=== PATIENT | male | born 1945 | race Caucasian/White ===

== ENCOUNTER → 2018-07-24 | Outpatient (CLI) | payer MEDICARE ==
[2018-07-24 13:44] LABS: ALBUMIN/GLOBULIN RATIO 1.29 (1.00-1.93); ALKALINE PHOSPHATASE 56 U/L (45-117); ALT/SGPT 34 U/L (12-78); ANION GAP 6 MEQ/L (8-16); AST/SGOT 18 U/L (7-37); BILIRUBIN,TOTAL 1.3 MG/DL (0.2-1.0); BLOOD UREA NITROGEN 32 MG/DL (7-18); CALCIUM LEVEL 9.5 MG/DL (8.8-10.2); CARBON DIOXIDE LEVEL 30 MEQ/L (21-32); CHLORIDE LEVEL 102 MEQ/L (98-107); CHOLESTEROL LEVEL 156 MG/DL (<200); CHOLESTEROL RISK RATIO 4.457 (<5); GLOMERULAR FILTRATION RATE > 60.0 (>42); GLUCOSE, FASTING 124 MG/DL (70-100); HDL CHOLESTEROL 35 MG/DL (>40); LDL CHOLESTEROL 72 MG/DL (<100); NON-HDL-C 121 MG/DL; POTASSIUM SERUM 4.6 MEQ/L (3.5-5.1); SODIUM LEVEL 138 MEQ/L (136-145); TOTAL PROTEIN 7.1 GM/DL (6.4-8.2); TRIGLYCERIDES LEVEL 244 MG/DL (<150); URIC ACID 5.7 MG/DL (3.5-7.2)
[2018-07-24 13:55] LABS: ESTIMATED AVERAGE GLUCOSE 140 MG/DL (60-110); HEMOGLOBIN A1c 6.5 %
[2018-07-24 14:08] LABS: MALB URINE SIEMENS 31.9 MG/L; MAU/CREAT RATIO 23.1 MCG/MG (0.0-30.0)
== END ==
LOC: M ADAMS 10:38
DX: E11.9 Type 2 diabetes mellitus without complications (principal); I10 Essential (primary) hypertension; E78.2 Mixed hyperlipidemia; M10.9 Gout, unspecified; E83.42 Hypomagnesemia
CPT/HCPCS: 83735

== ENCOUNTER → 2018-11-19 | Outpatient (REF) | payer MEDICARE ==
[~2018-11-19] MED LIST: ASPI81TA85 PO; CARV12.5 PO; CARV25TA PO; DIGO0.25 PO; FURO40TA2 PO; MAGN200T PO; METF10004 PO; MULTCAP PO; PRAD150C6 PO; RAMI1CAP24 PO; SIMV10TA2 PO; SPIR-10 PO; VITA500T PO; ZYLO300T6 PO
[2018-11-19 14:01] LABS: BLOOD UREA NITROGEN 29 MG/DL (7-18); CALCIUM LEVEL 9.5 MG/DL (8.8-10.2); CARBON DIOXIDE LEVEL 28 MEQ/L (21-32); CHLORIDE LEVEL 103 MEQ/L (98-107); CREATININE FOR GFR 1.18 MG/DL (0.70-1.30); GLOMERULAR FILTRATION RATE > 60.0 (>42); GLUCOSE, FASTING 124 MG/DL (70-100); MAGNESIUM LEVEL 1.8 MG/DL (1.8-2.4); POTASSIUM SERUM 4.5 MEQ/L (3.5-5.1); SODIUM LEVEL 136 MEQ/L (136-145)
== END ==
LOC: M LABDRWAD 12:23
PROVIDERS: ATTEND Physician Assistant
DX: I50.42 Chronic combined systolic (congestive) and diastolic (congestive) heart failure (principal)

== ENCOUNTER → 2019-02-20 | Outpatient (REF) | payer MEDICARE ==
[2019-02-20 12:54] LABS: BLOOD UREA NITROGEN 31 MG/DL (7-18); CALCIUM LEVEL 9.5 MG/DL (8.8-10.2); CARBON DIOXIDE LEVEL 29 MEQ/L (21-32); CHLORIDE LEVEL 102 MEQ/L (98-107); CREATININE FOR GFR 1.25 MG/DL (0.70-1.30); GLOMERULAR FILTRATION RATE > 60.0 (>42); GLUCOSE, FASTING 173 MG/DL (70-100); MAGNESIUM LEVEL 1.9 MG/DL (1.8-2.4); POTASSIUM SERUM 4.5 MEQ/L (3.5-5.1); SODIUM LEVEL 139 MEQ/L (136-145)
== END ==
LOC: M LABDRWAD 12:09
PROVIDERS: ATTEND Physician Assistant
DX: I50.42 Chronic combined systolic (congestive) and diastolic (congestive) heart failure (principal)

== ENCOUNTER → 2019-05-29 | Outpatient (REF) | payer MEDICARE ==
[2019-05-29 19:49] LABS: CALCIUM LEVEL 10.3 MG/DL (8.8-10.2); CREATININE FOR GFR 1.45 MG/DL (0.70-1.30); GLOMERULAR FILTRATION RATE 50.6 (>42); MAGNESIUM LEVEL 1.9 MG/DL (1.8-2.4); POTASSIUM SERUM 4.8 MEQ/L (3.5-5.1)
== END ==
LOC: M LABDRAW1 19:07
PROVIDERS: ATTEND Physician Assistant
DX: I50.42 Chronic combined systolic (congestive) and diastolic (congestive) heart failure (principal)

== ENCOUNTER 2019-07-07 10:40 | Emergency (ER) | payer MEDICARE ==
[~2019-07-07] VITALS: Ht 180.3 cm; Wt 110.0 kg
[2019-07-07] MEDS ORDERED: ENTR1TAB (12:15)
[2019-07-07] MEDS ORDERED: BISO5TAB9 (12:15)
[2019-07-07] MEDS ORDERED: CYCLOBENZAPRINE 5MG TABLET PO ONE (13:00)
[2019-07-07] MEDS ORDERED: LIDOCAINE 5% (LIDODERM) PATCH TD ONE (13:00)
[2019-07-07 13:10] LABS: BASO # 0.1 10^3/uL (0.0-0.2); BASO % 0.7 % (0.0-1.0); EOS # 0.4 10^3/uL (0.0-0.5); EOS % 5.2 % (0.0-3.0); HEMATOCRIT 42.4 % (42.0-52.0); HEMOGLOBIN 13.8 g/dl (13.5-17.5); LYMPH # 2.1 10^3/uL (1.5-5.0); LYMPH % 24.6 % (24.0-44.0); MEAN CORPUSCULAR HEMOGLOBIN 33.3 pg (27.0-33.0); MEAN CORPUSCULAR HGB CONC 32.5 g/dl (32.0-36.5); MEAN CORPUSCULAR VOLUME 102.4 fl (80.0-96.0); MONO # 0.7 10^3/uL (0.0-0.8); MONO % 7.8 % (0.0-5.0); NEUTROPHILS # 5.2 10^3/uL (1.5-8.5); NEUTROPHILS % 61.3 % (36.0-66.0); PLATELET COUNT, AUTOMATED 231 10^3/uL (150-450); RED BLOOD COUNT 4.14 10^6/uL (4.30-6.10); WHITE BLOOD COUNT 8.4 10^3/uL (4.0-10.0)
[2019-07-07 13:32] LABS: CALCIUM LEVEL 10.6 MG/DL (8.8-10.2); CREATININE FOR GFR 1.32 MG/DL (0.70-1.30); GLOMERULAR FILTRATION RATE 56.4 (>42); POTASSIUM SERUM 4.8 MEQ/L (3.5-5.1)
--- NOTE | 2019-07-07 13:59 | REP ---
REASON: Low back pain. PRIORS: None. Syndesmophyte formation is seen on the right at the L2-3 level with other partial syndesmophytes at all other levels. Vertebral body height and alignment is within normal limits. There is disc space narrowing at every level. There is degenerative facet joint change seen bilaterally at every level. The pedicles are intact bilaterally. There is no evidence of an acute fracture. IMPRESSION: Rather marked appearing chronic changes. Electronically Signed by Paco Caceres DO 07/07/2019 02:17 P
[2019-07-07] MEDS ORDERED: CYCL5TAB PO (16:37)
[2019-07-07] MEDS ORDERED: LIDO5DIS41 TOP (16:37)
[2019-07-07] MEDS ORDERED: ACETAMINOPHEN TAB 650MG DOSE (2X325MG) PO ONE (16:45)
[2019-07-07 17:05] VITALS: BP 110/62
[2019-07-07] MEDS ORDERED: **NOTE PATIENT COMMENT** MISC XX SCH (21:00)
--- NOTE | 2019-07-08 07:35 | REP ---
REASON: Right sided pain. COMPARISON: None. Limited evaluation of the solid intra-abdominal organs and gallbladder show no gross abnormalities. Limited evaluation of the pancreas and adrenal glands show no gross abnormalities. There are bilateral renovascular calcifications. There is no hydronephrosis or hydroureter. Limited evaluation of the abdominal aorta and paraaortic regions show no gross abnormalities. Limited evaluation of the bowel loops and their mesenteries show no gross abnormalities. There is no free fluid or free air in the abdomen. There was no evidence of an intra-abdominal mass or adenopathy. CT PELVIS: The bowel loops and their mesenteries are within normal limits. There is no free fluid or free air. There is no mass or adenopathy. Bone window technique throughout the exam shows chronic spinal, hip, and sacroiliac joint degenerative changes. The lung bases are within normal limits. There is respiratory motion artifact obscuring the detail. There are no pleural or pericardial effusions. IMPRESSION: There is no evidence of acute intra-abdominal or intrapelvic disease on this limited exam. Findings as described above. Electronically Signed by Paco Caceres DO 07/08/2019 12:07 P
--- NOTE | 2019-07-08 07:41 | REP ---
REASON FOR EXAM: Right sided pain. There are no priors for comparison. CT cannot rule out an acute disc extrusion. Vertebral body height and alignment is within normal limits. There is disc space narrowing at every level particularly posteriorly. There is universal disc space narrowing at L4-5 with endplate sclerosis likely Modic type 3 endplate changes. The facet joints are seen with hypertrophic degenerative change which is mild to moderate at every level bilaterally. There is no bony cause of anabela central canal stenosis. There is no evidence of an acute fracture. Chronic changes seen involving the imaged portion of the sacroiliac joints. Syndesmophyte formation is seen on the right at L2-3 with near complete syndesmophyte formation seen on the left at that level. There is anterior lipping at every level. IMPRESSION: Chronic changes as described above. CT cannot rule out a disc extrusion. MRI would be necessary to make that diagnosis. Electronically Signed by Paco Caceres DO 07/08/2019 12:07 P
--- NOTE | 2019-07-09 15:36 | ED PDOC ---
Post-Departure Follow-Up ish ramirez faxed formal report of ctls spine for fu Janie Loya MD Jul 09, 2019 15:36
== END 2019-07-07 17:06 | disposition home or self-care (01) ==
LOC: M ED 10:40
DX: S30.0XXA Contusion of lower back and pelvis, initial encounter (principal); S39.012A Strain of muscle, fascia and tendon of lower back, initial encounter; X58.XXXA Exposure to other specified factors, initial encounter; Y92.89 Other specified places as the place of occurrence of the external cause; M43.07 Spondylolysis, lumbosacral region; N28.9 Disorder of kidney and ureter, unspecified; E11.9 Type 2 diabetes mellitus without complications; I11.0 Hypertensive heart disease with heart failure; I50.9 Heart failure, unspecified; I48.91 Unspecified atrial fibrillation; E78.5 Hyperlipidemia, unspecified; Z79.899 Other long term (current) drug therapy; Z79.84 Long term (current) use of oral hypoglycemic drugs; Z79.82 Long term (current) use of aspirin; Z88.8 Allergy status to other drugs, medicaments and biological substances

== ENCOUNTER → 2019-07-15 | Outpatient (REF) | payer MEDICARE ==
[~2019-07-15] MED LIST changes: +BISO5TAB9; +CYCL5TAB PO; +ENTR1TAB; +LIDO5DIS41 TOP; -SIMV10TA2 PO; +SIMV10TA21 PO
[2019-07-15 13:41] LABS: ALBUMIN 4.3 GM/DL (3.2-5.2); BILIRUBIN,TOTAL 0.9 MG/DL (0.2-1.0); CALCIUM LEVEL 9.6 MG/DL (8.8-10.2); CHOLESTEROL RISK RATIO 3.785 (<5); CREATININE FOR GFR 1.3 MG/DL (0.70-1.30); GLOMERULAR FILTRATION RATE 57.4 (>42); MAGNESIUM LEVEL 1.7 MG/DL (1.8-2.4); POTASSIUM SERUM 4.8 MEQ/L (3.5-5.1); TOTAL PROTEIN 7.6 GM/DL (6.4-8.2); URIC ACID 4.8 MG/DL (3.5-7.2)
[2019-07-15 13:43] LABS: HEMOGLOBIN A1c 6.5 %
[2019-07-15 13:54] LABS: CREATININE, URINE 36.9 MG/DL; MALB URINE SIEMENS 86.6 MG/L; MAU/CREAT RATIO 234.6 MCG/MG (0.0-30.0)
== END ==
LOC: M LABDRWAD 12:48
PROVIDERS: ATTEND Physician Assistant
DX: E11.69 Type 2 diabetes mellitus with other specified complication (principal); E78.2 Mixed hyperlipidemia; E83.42 Hypomagnesemia; M10.9 Gout, unspecified

== ENCOUNTER → 2019-09-05 | Outpatient (REF) | payer MEDICARE ==
[~2019-09-05] MED LIST changes: +BISO5TAB14; -BISO5TAB9; -DIGO0.25 PO; +DIGO0.253 PO
[2019-09-05 13:40] LABS: CALCIUM LEVEL 9.5 MG/DL (8.8-10.2); CREATININE FOR GFR 1.29 MG/DL (0.70-1.30); POTASSIUM SERUM 4.7 MEQ/L (3.5-5.1)
== END ==
LOC: M LABDRWAD 12:33
PROVIDERS: ATTEND Physician Assistant
DX: I50.42 Chronic combined systolic (congestive) and diastolic (congestive) heart failure (principal)

== ENCOUNTER → 2019-12-10 | Outpatient (REF) | payer MEDICARE ==
[~2019-12-10] MED LIST changes: +VITA-243 PO; -VITA500T PO
[2019-12-10 13:21] LABS: BLOOD UREA NITROGEN 29 MG/DL (7-18); CALCIUM LEVEL 10.1 MG/DL (8.8-10.2); CARBON DIOXIDE LEVEL 25 MEQ/L (21-32); CHLORIDE LEVEL 105 MEQ/L (98-107); CREATININE FOR GFR 1.22 MG/DL (0.70-1.30); GLOMERULAR FILTRATION RATE > 60.0 (>42); GLUCOSE, FASTING 167 MG/DL (70-100); POTASSIUM SERUM 4.6 MEQ/L (3.5-5.1); SODIUM LEVEL 138 MEQ/L (136-145)
== END ==
LOC: M LABDRWAD 12:39
PROVIDERS: ATTEND Physician Assistant
DX: I50.42 Chronic combined systolic (congestive) and diastolic (congestive) heart failure (principal)

== ENCOUNTER → 2020-01-09 | Outpatient (REF) | payer MEDICARE ==
[2020-01-09 14:48] LABS: HEMOGLOBIN A1c 7.2 %
[2020-01-09 15:30] LABS: ALBUMIN 3.7 GM/DL (3.2-5.2); BILIRUBIN,TOTAL 1.4 MG/DL (0.2-1.0); CALCIUM LEVEL 9.4 MG/DL (8.8-10.2); CHOLESTEROL RISK RATIO 4.533 (<5); CREATININE FOR GFR 1.38 MG/DL (0.70-1.30); GLOMERULAR FILTRATION RATE 53.5 (>42); MAGNESIUM LEVEL 1.7 MG/DL (1.8-2.4); POTASSIUM SERUM 4.5 MEQ/L (3.5-5.1); TOTAL PROTEIN 6.6 GM/DL (6.4-8.2); URIC ACID 6.7 MG/DL (3.5-7.2)
== END ==
LOC: M LABDRWAD 12:35
PROVIDERS: ATTEND Physician Assistant
DX: E83.42 Hypomagnesemia (principal); E11.69 Type 2 diabetes mellitus with other specified complication; E78.2 Mixed hyperlipidemia; M10.9 Gout, unspecified

== ENCOUNTER → 2020-03-12 | Outpatient (REF) | payer MEDICARE ==
[~2020-03-12] MED LIST changes: -ASPI81TA85 PO; +ASPI81TA86 PO
[2020-04-07 22:26] LABS: HEMATOCRIT 40.6 % (42.0-52.0); HEMOGLOBIN 13.3 g/dl (13.5-17.5); MEAN CORPUSCULAR HEMOGLOBIN 33.7 pg (27.0-33.0); MEAN CORPUSCULAR HGB CONC 32.8 g/dl (32.0-36.5); MEAN CORPUSCULAR VOLUME 102.8 fl (80.0-96.0); PLATELET COUNT, AUTOMATED 203 10^3/uL (150-450); RED BLOOD COUNT 3.95 10^6/uL (4.30-6.10); WHITE BLOOD COUNT 8.7 10^3/uL (4.0-10.0)
[2020-04-30 05:09] LABS: CALCIUM LEVEL 9.9 MG/DL (8.8-10.2); CREATININE FOR GFR 1.39 MG/DL (0.70-1.30); MAGNESIUM LEVEL 1.8 MG/DL (1.8-2.4); POTASSIUM SERUM 5.2 MEQ/L (3.5-5.1)
== END ==
LOC: M LABDRWAD 09:32
PROVIDERS: ATTEND Physician Assistant
DX: I50.42 Chronic combined systolic (congestive) and diastolic (congestive) heart failure (principal); I48.21 Permanent atrial fibrillation

== ENCOUNTER → 2020-06-08 | Outpatient (REF) | payer MEDICARE ==
[2020-06-08 17:08] LABS: CALCIUM LEVEL 10.3 MG/DL (8.8-10.2); CREATININE FOR GFR 1.57 MG/DL (0.70-1.30); GLOMERULAR FILTRATION RATE 46.1 (>42); MAGNESIUM LEVEL 2.2 MG/DL (1.8-2.4); POTASSIUM SERUM 4.8 MEQ/L (3.5-5.1)
== END ==
LOC: M LABDRWAD 16:28
PROVIDERS: ATTEND Physician Assistant
DX: I50.42 Chronic combined systolic (congestive) and diastolic (congestive) heart failure (principal)

== ENCOUNTER → 2020-07-21 | Outpatient (CLI) | payer SELFPAY | LOC: M LABSMTC 13:48 | PROVIDERS: ATTEND Pediatrics | DX: Z11.59 Encounter for screening for other viral diseases (principal) ==

== ENCOUNTER → 2020-09-22 | Outpatient (REF) | payer MEDICARE | LOC: M LAB REF 16:14 | PROVIDERS: ATTEND Physician Assistant Medical | DX: R19.7 Diarrhea, unspecified (principal) ==

== ENCOUNTER → 2020-10-09 | Outpatient (REF) | payer MEDICARE ==
[2020-10-09 14:04] LABS: HEMOGLOBIN A1c 7.1 %
== END ==
LOC: M LABDRWAD 12:49
PROVIDERS: ATTEND Physician Assistant Medical
DX: E11.69 Type 2 diabetes mellitus with other specified complication (principal)

== ENCOUNTER → 2020-10-09 | Outpatient (REF) | payer MEDICARE ==
[2020-10-09 13:44] LABS: HEMATOCRIT 35.6 % (42.0-52.0); HEMOGLOBIN 11.6 g/dl (13.5-17.5); MEAN CORPUSCULAR HEMOGLOBIN 33.8 pg (27.0-33.0); MEAN CORPUSCULAR HGB CONC 32.6 g/dl (32.0-36.5); MEAN CORPUSCULAR VOLUME 103.8 fl (80.0-96.0); PLATELET COUNT, AUTOMATED 208 10^3/uL (150-450); RED BLOOD COUNT 3.43 10^6/uL (4.30-6.10); WHITE BLOOD COUNT 8.5 10^3/uL (4.0-10.0)
[2020-10-09 14:28] LABS: ALBUMIN 3.9 GM/DL (3.2-5.2); BILIRUBIN,TOTAL 1.1 MG/DL (0.2-1.0); CALCIUM LEVEL 9.8 MG/DL (8.8-10.2); CREATININE FOR GFR 2.02 MG/DL (0.70-1.30); GLOMERULAR FILTRATION RATE 34.5 (>42); MAGNESIUM LEVEL 1.8 MG/DL (1.8-2.4); POTASSIUM SERUM 4.8 MEQ/L (3.5-5.1); THYROID STIMULATING HORMONE 3.92 uIU/ML (0.358-3.740); TOTAL PROTEIN 7.1 GM/DL (6.4-8.2)
== END ==
LOC: M LABDRWAD 12:52
PROVIDERS: ATTEND Physician Assistant
DX: I50.42 Chronic combined systolic (congestive) and diastolic (congestive) heart failure (principal); I48.21 Permanent atrial fibrillation; E11.69 Type 2 diabetes mellitus with other specified complication

== ENCOUNTER → 2020-10-14 | Outpatient (CLI) | payer MEDICARE ==
[~2020-10-14] MED LIST changes: +AMIO200T3 PO; +ASPI81TA26 PO; +BISO10TA14 PO; -ENTR1TAB; +ENTR1TAB PO; +LASI40TA9 PO; +LEVO250T12 PO; +MAGN400C PO; +VITMTA PO
--- NOTE | 2020-10-14 09:15 | REP ---
INDICATION: LT FLANK PAIN ? STONES COMPARISON: 07/07/2019 TECHNIQUE: Axial noncontrast images from the lung bases to the pubic symphysis with coronal and sagittal reformations. This CT examination was performed using the following dose reduction techniques: Automated exposure control, adjustment of mA and/or kv according to the patient's size, and use of iterative reconstruction technique. FINDINGS: Kidneys demonstrate mild stable chronic appearing perinephric stranding along with renovascular calcifications. Nonobstructing punctate left intrarenal calculus cannot be excluded. There is no evidence for hydroureteronephrosis or obstructing ureteral calculus. Correlation with urinalysis is recommended to exclude pyelonephritis. Liver, spleen, pancreas, gallbladder, and bilateral adrenal glands are relatively stable/normal. Incidental small left adrenal adenoma unchanged. The enteric system is without obstruction or acute inflammatory process. Normal terminal ileum and appendix are identified in the right lower quadrant. Few scattered sigmoid diverticula noted without acute diverticulitis. Pelvis demonstrates normal bladder and mildly prominent prostate gland along with small fat containing right inguinal hernia. No ascites. No free air. No adenopathy. Atherosclerotic changes to the aorta and vasculature noted without aneurysm. Musculoskeletal structures demonstrate degenerative changes without acute osseous abnormality. Lung bases demonstrate chronic change. Cardiomegaly noted. IMPRESSION: 1. Relatively chronic appearing changes to the bilateral kidneys similar to prior examination. No hydronephrosis or obvious ureteral calculus. Correlation with urinalysis recommended to exclude pyelonephritis. 2. Chronic nonacute findings as described above. <Electronically signed by Bishnu Garcia > 10/14/20 0911
== END ==
LOC: M RAD 08:13
PROVIDERS: ATTEND Physician Assistant Medical
DX: I51.7 Cardiomegaly (principal); R10.32 Left lower quadrant pain

== ENCOUNTER 2020-10-15 09:16 | Inpatient (IN) | payer MEDICARE ==
[~2020-10-15] VITALS: Ht 177.8 cm; Wt 109.8 kg
[~2020-10-15 09:16] MED LIST changes: -AMIO200T3 PO; -ASPI81TA26 PO; -BISO10TA14 PO; -LASI40TA9 PO; -LEVO250T12 PO; -MAGN400C PO; -VITMTA PO
--- NOTE | 2020-10-15 09:52 | REP ---
INDICATION: DYSPNEA/COUGH COMPARISON: 12/23/2005 TECHNIQUE: Portable AP view of the chest FINDINGS: Examination is limited by portable technique and underpenetration which accentuate the pulmonary vasculature and interstitium. Diffuse interstitial edema and or bronchitis/viral pneumonia cannot be excluded. Correlation is required. No discrete focal consolidation. No effusion. No pneumothorax. Stable cardiomegaly again noted. IMPRESSION: Cannot exclude interstitial edema or diffuse bronchitis/viral pneumonia pattern. <Electronically signed by Bishnu Garcia > 10/15/20 [id number]
[2020-10-15 09:58] LABS: BASO # 0.1 10^3/uL (0.0-0.2); BASO % 0.4 % (0.0-1.0); EOS % 0.1 % (0.0-3.0); HEMATOCRIT 37.3 % (42.0-52.0); HEMOGLOBIN 12.1 g/dl (13.5-17.5); LYMPH # 0.7 10^3/uL (1.5-5.0); LYMPH % 4.6 % (24.0-44.0); MEAN CORPUSCULAR HEMOGLOBIN 33.8 pg (27.0-33.0); MEAN CORPUSCULAR HGB CONC 32.4 g/dl (32.0-36.5); MEAN CORPUSCULAR VOLUME 104.2 fl (80.0-96.0); MONO % 6.8 % (2.0-8.0); NEUTROPHILS # 12.2 10^3/uL (1.5-8.5); NEUTROPHILS % 87.4 % (36.0-66.0); PLATELET COUNT, AUTOMATED 271 10^3/uL (150-450); RED BLOOD COUNT 3.58 10^6/uL (4.30-6.10)
[2020-10-15] MEDS ORDERED: FUROSEMIDE 40MG/4ML VIAL (J1940) IV ONE (10:05)
[2020-10-15] MEDS ORDERED: MAGN400C PO (10:07)
[2020-10-15] MEDS ORDERED: BISO10TA14 PO (10:07)
[2020-10-15 10:08] LABS: INR 1.54; PROTHROMBIN TIME 18.8 SECONDS (12.5-14.3)
[2020-10-15] MEDS ORDERED: AMIO200T3 PO (10:08)
[2020-10-15] MEDS ORDERED: VITMTA PO (10:08)
[2020-10-15] MEDS ORDERED: ASPI81TA26 PO (10:08)
[2020-10-15 11:05] LABS: ALBUMIN 3.8 GM/DL (3.2-5.2); ALT/SGPT 48 U/L (12-78); BILIRUBIN,DIRECT 0.2 MG/DL (0.0-0.2); BLOOD UREA NITROGEN 51 MG/DL (7-18); CALCIUM LEVEL 9.1 MG/DL (8.8-10.2); CARBON DIOXIDE LEVEL 24 MEQ/L (21-32); CHLORIDE LEVEL 102 MEQ/L (98-107); CK-MB VALUE MASS < 1.0 NG/ML (<3.6); CPK CREATINE PHOSPHOKINASE 76 U/L (39-308); CREATININE FOR GFR 2.01 MG/DL (0.70-1.30); DIGOXIN LEVEL 0.2 NG/ML (0.5-2.0); GLOMERULAR FILTRATION RATE 34.6 (>42); GLUCOSE, FASTING 248 MG/DL (70-100); MAGNESIUM LEVEL 2.2 MG/DL (1.8-2.4); MB/CK RELATIVE INDEX 1.32 (< OR =4); NT-PRO BNP 2397 PG/ML (<450); POTASSIUM SERUM 5.4 MEQ/L (3.5-5.1); SODIUM LEVEL 133 MEQ/L (136-145); THYROXINE (T4) 6.6 UG/DL (4.5-12.0); TOTAL PROTEIN 7.2 GM/DL (6.4-8.2); TROPONIN I < 0.02 NG/ML (< 0.10)
[2020-10-15] MEDS ORDERED: HEPARIN SOD (PORCINE) 5000UNITS/ML 1ML VIAL/SYRINGE SC SCH (11:35)
[2020-10-15] MEDS ORDERED: GLUCOSE 4GM CHEW TABLET PO PRN (11:55)
[2020-10-15] MEDS ORDERED: GLUCAGON INJ 1MG VIAL SC PRN (11:55)
[2020-10-15] MEDS ORDERED: DEXTROSE 50% 50 ML SYRINGE IV PRN (11:55)
--- NOTE | 2020-10-15 12:05 | HPEPDOC ---
General Date of Admission Oct 15, 2020 at 11:35 Date of Service: Oct 15, 2020 Chief Complaint The patient is a 74-year-old male admitted with a reason for visit of Chf Hypoxia. Source: Patient Exam Limitations: Clinical conditions Timing/Duration: Day(s) Severity: Severe History of Present Illness Patient is 74 years old male with past medical history of atrial fibrillation, AICD placement, hyperlipidemia, systolic CHF presented to the hospital with shortness of breath. Patient is poor historian, he stated that he stopped taking his diuretics, he explained because he was thinking he has UTI. He has been having increased shortness of breath for past 5-6 days with orthopnea and leg swelling. Patient denies any fever, chills, nausea or vomiting. He stated that he has been having increased urinary frequency, no burning during urination. Patient denied any flank pain. In ER patient was found to have white blood count of 14, hemoglobin 12, potassium 5.4, creatinine 2.01, BNP 2397. X-ray showed cardiomegaly with interstitial edema. Home Medications Scheduled Allopurinol (Zyloprim) 300 Mg Tab, 300 MG PO DAILY, (Reported) Amiodarone HCl (Amiodarone HCl) 200 Mg Tablet, 200 MG PO TID, (Reported) DECREASE TO BID DOSING ON 11/12/20 Ascorbic Acid (Vitamin C) 500 Mg Tab, 1,000 MG PO DAILY, (Reported) Aspirin (Aspirin EC) 81 Mg Tablet.dr, 81 MG PO DAILY, (Reported) Bisoprolol Fumarate (Bisoprolol Fumarate) 10 Mg Tablet, 10 MG PO BID, (Reported) Carvedilol (Carvedilol) 25 Mg Tab, 25 MG PO BID, (Reported) Dabigatran Etexilate Mesylate (Pradaxa) 150 Mg Cap, 150 MG PO BID, (Reported) Magnesium Oxide (Magnesium) 400 Mg Capsule, 400 MG PO BID, (Reported) Metformin HCl (Metformin HCl) 1,000 Mg Tab, 1,000 MG PO BID, (Reported) Multivitamins (Thera M Plus Tablet) 1 Each Tablet, 1 TAB PO DAILY, (Reported) Sacubitril/Valsartan (Entresto 24 mg-26 mg Tablet) 1 Each Tablet, 1 TAB PO BID, (Reported) Simvastatin (Simvastatin) 10 Mg Tab, 10 MG PO QHS, (Reported) Allergies Coded Allergies: atorvastatin (Verified Adverse Reaction, Mild, MUSCLE STIFFNESS, 10/15/20) Past Medical History Medical History atrial fibrillation, hyperlipidemia, systolic CHF, diabetes type 2 Surgical History AICD Family History I personally reviewed family history and found not pertinent Social History * Smoker: Denies Alcohol: Denies Drugs: denies A-FIB/CHADSVASC A-FIB History Current/History of A-Fib/PAF?: Yes Current PO Anticoag Therapy: Yes Review of Systems Constitutional: Denies: Chills, Fever Eyes: Denies: Pain ENT: Denies: Head Aches Skin: Denies: Rash Pulmonary: Reports: Dyspnea Cardiovascular: Reports: Orthopnea, Paroxysmal Noc. Dyspnea, Edema; Denies: Chest Pain, Palpitations Gastrointestinal: Denies: Nausea Genitourinary: Denies: Dysuria Hematologic: Denies: Bruising Endocrine: Denies: Polydipsia Musculoskeletal: Denies: Neck Pain Neurological: Denies: Weakness Psych: Reports: Mood Normal Physical Examination General Exam: Positive: Alert, Cooperative Eye Exam: Positive: PERRLA ENT Exam: Positive: Atraumatic Neck Exam: Positive: Supple, JVD Chest Exam: Positive: Rales Heart Exam: Positive: Irregular Rhythm Telemetry: Positive: Atrial fibrillation Abdomen Exam: Positive: Normal bowel sounds Extremity Exam: Negative: Clubbing Skin Exam: Positive: Nl turgor and temperature Neuro Exam: Positive: Normal Gait Psych Exam: Positive: Mental status NL Vital Signs Vital Signs Date Time Temp Pulse Resp B/P (MAP) Pulse Ox O2 Delivery O2 Flow Rate FiO2 10/15/20 11:07 30 10/15/20 09:51 10/15/20 09:17 97.8 106 18 96 Room Air Laboratory Data Labs 24H Laboratory Tests 2 10/15/20 09:25: Immature Granulocyte % (Auto) 0.7, Neutrophils (%) (Auto) 87.4H, Lymphocytes (%) (Auto) 4.6L, Monocytes (%) (Auto) 6.8, Eosinophils (%) (Auto) 0.1, Basophils (%) (Auto) 0.4, Neutrophils # (Auto) 12.2H, Lymphocytes # (Auto) 0.7L, Monocytes # (Auto) 1.0H, Eosinophils # (Auto) 0.0, Basophils # (Auto) 0.1, Nucleated Red Blood Cells % (auto) 0.0, Prothrombin Time 18.8H, Prothromb Time International Ratio 1.54, Anion Gap 7L, Glomerular Filtration Rate 34.6L, Calcium Level 9.1, Magnesium Level 2.2, Total Bilirubin 1.0, Direct Bilirubin 0.2, Aspartate Amino Transf (AST/SGOT) 24, Alanine Aminotransferase (ALT/SGPT) 48, Alkaline Phosphatase 57, Total Creatine Kinase 76, Creatine Kinase MB < 1.0, Creatine Kinase MB Relative Index 1.32, Troponin I < 0.02, NW-Zvs-[id number]-Type Natriuretic Peptide 2397H, Total Protein 7.2, Albumin 3.8, Albumin/Globulin Ratio 1.1, Thyroid Stimulating Hormone (TSH) 4.230H, Thyroxine (T4) 6.6, Digoxin Level 0.2L 10/15/20 10:49: POC pH (Misc Panel) 7.401, POC Base Excess (Misc Panel) -5.0L, POC Saturated Pe rcent O2 (Misc) 98, POC pO2 (Misc Panel) 95.0, POC pCO2 (Misc Panel) 32.1L, POC HCO3 (Misc Panel) 19.9L, POC Total CO2 (Misc Panel) 21.0L CBC/BMP Laboratory Tests 10/15/20 09:25 Microbiology Microbiology 10/15/20 Respiratory Virus Panel (PCR) ([facility]) - Final, Complete Assessment/Plan Patient is 74 years old male with past medical history of atrial fibrillation, AICD placement, hyperlipidemia, systolic CHF presented to the hospital with shortness of breath. Patient is poor historian, he stated that he stopped taking his diuretics, he explained because he was thinking he has UTI. He has been having increased shortness of breath for past 5-6 days with orthopnea and leg swelling. In ER patient was found to have white blood count of 14, hemoglobin 12, potassium 5.4, creatinine 2.01, BNP 2397. X-ray showed cardiomegaly with interstitial edema. Problems (1) CHF (congestive heart failure) Status: Acute Problem Text: Patient has plus JVD, orthopnea, dyspnea, increased leg swelling. X-ray showed increased interstitial markings with increased BNP Most likely patient developed Systolic CHF exacerbation. Patient has a long history of systolic CHF. AICD was recently placed. I will contact check inspector office for further details Secondary to noncompliance to medications I's and O's Lasix IV twice a day Echo Cardiac diet (2) GABBY (acute kidney injury) Status: Acute Problem Text: Prerenal due to intravascular depletion secondary to CHF exacerbation Continue to monitor (3) Shortness of breath Status: Acute Problem Text: Secondary to CHF exacerbation See above (4) Atrial fibrillation Status: Chronic Problem Text: Heart rate under control Continue home cardioprotective medications (5) Hyperkalemia Status: Acute Problem Text: Will check BMP in 4 hours Patient received Lasix IV (6) Leukocytosis Status: Acute Problem Text: Patient afebrile, looked nontoxic Continue to monitor Will check UA Plan / VTE VTE Prophylaxis Ordered?: Yes CARRIE CRISTOBAL DO Oct 15, 2020 12:05
[2020-10-15 12:40] VITALS: BP 117/73
[2020-10-15] MEDS: bisoproloL fumarate 5 MG TAB PO SCH ×2 (12:56→21:00)
[2020-10-15] MEDS: ASCORBIC ACID 500 MG TAB PO SCH (12:57)
[2020-10-15] MEDS: ASPIRIN 81 MG ENTERIC TAB PO SCH (12:57)
[2020-10-15] MEDS: MAGNESIUM OXIDE 400MG TAB (MAG-OX) PO SCH ×2 (12:58→21:21)
[2020-10-15] MEDS: HumaLOG INSULIN (NovoLOG) PER UNIT SC SCH ×3 (12:58→21:00)
[2020-10-15] MEDS: allopurinoL 300 MG TAB PO SCH (13:02)
[2020-10-15] MEDS: DABIGATRAN ETEXILATE 75 MG CAP (PRADAXA) PO SCH ×2 (13:02→21:20)
[2020-10-15 13:16] LABS: CALCIUM LEVEL 8.7 MG/DL (8.8-10.2); CREATININE FOR GFR 1.97 MG/DL (0.70-1.30); GLOMERULAR FILTRATION RATE 35.5 (>42); POTASSIUM SERUM 5.4 MEQ/L (3.5-5.1)
[2020-10-15] MEDS ORDERED: SLF 3 ML SYR IV PRN (13:25)
[2020-10-15] MEDS: SLF 3 ML SYR IV SCH ×2 (13:49→21:22)
[2020-10-15 16:00] VITALS: BP 104/74
[2020-10-15] MEDS: AMIODARONE 200 MG TAB (PACERONE) PO SCH ×2 (16:06→21:21)
[2020-10-15 16:12] LABS: CALCIUM LEVEL 9.1 MG/DL (8.8-10.2); CREATININE FOR GFR 2.45 MG/DL (0.70-1.30); GLOMERULAR FILTRATION RATE 27.6 (>42)
[2020-10-15] MEDS: cefTRIAXone SOD 2 GM in D5W MINI-BAG PLUS 50 ML IV SCH (17:56)
[2020-10-15 20:00] VITALS: BP 102/60
[2020-10-15 20:05] LABS: CALCIUM LEVEL 8.5 MG/DL (8.8-10.2); CREATININE FOR GFR 2.16 MG/DL (0.70-1.30); GLOMERULAR FILTRATION RATE 31.9 (>42); POTASSIUM SERUM 4.8 MEQ/L (3.5-5.1)
[2020-10-15] MEDS: SIMVASTATIN 10 MG TAB PO SCH (21:21)
[2020-10-15 21:30] VITALS: BP 96/54
[2020-10-16] VITALS: BP 95/53
[2020-10-16 00:27] LABS: CALCIUM LEVEL 8.9 MG/DL (8.8-10.2); CREATININE FOR GFR 2.01 MG/DL (0.70-1.30); GLOMERULAR FILTRATION RATE 34.6 (>42); POTASSIUM SERUM 4.8 MEQ/L (3.5-5.1)
[2020-10-16 04:00] VITALS: BP 131/76
[2020-10-16 04:59] LABS: CALCIUM LEVEL 8.3 MG/DL (8.8-10.2); CREATININE FOR GFR 1.93 MG/DL (0.70-1.30); GLOMERULAR FILTRATION RATE 36.3 (>42); POTASSIUM SERUM 4.5 MEQ/L (3.5-5.1)
[2020-10-16] MEDS: SLF 3 ML SYR IV SCH ×3 (05:20→21:15)
[2020-10-16 06:08] LABS: HEMOGLOBIN 10.4 g/dl (13.5-17.5); MEAN CORPUSCULAR HGB CONC 32.5 g/dl (32.0-36.5); MEAN CORPUSCULAR VOLUME 101.6 fl (80.0-96.0); PLATELET COUNT, AUTOMATED 187 10^3/uL (150-450); RED BLOOD COUNT 3.15 10^6/uL (4.30-6.10); WHITE BLOOD COUNT 10.5 10^3/uL (4.0-10.0)
[2020-10-16 06:42] LABS: CALCIUM LEVEL 8.3 MG/DL (8.8-10.2); CREATININE FOR GFR 1.81 MG/DL (0.70-1.30); GLOMERULAR FILTRATION RATE 39.1 (>42); MAGNESIUM LEVEL 2.1 MG/DL (1.8-2.4); POTASSIUM SERUM 4.6 MEQ/L (3.5-5.1)
[2020-10-16 08:00] VITALS: BP 138/87
[2020-10-16 08:41] LABS: CALCIUM LEVEL 8.6 MG/DL (8.8-10.2); CREATININE FOR GFR 1.78 MG/DL (0.70-1.30); GLOMERULAR FILTRATION RATE 39.9 (>42); POTASSIUM SERUM 4.6 MEQ/L (3.5-5.1)
[2020-10-16] MEDS: HumaLOG INSULIN (NovoLOG) PER UNIT SC SCH ×4 (08:47→20:09)
[2020-10-16] MEDS: bisoproloL fumarate 5 MG TAB PO SCH ×2 (08:48→20:08)
[2020-10-16] MEDS: AMIODARONE 200 MG TAB (PACERONE) PO SCH ×3 (08:48→20:09)
[2020-10-16] MEDS: DABIGATRAN ETEXILATE 75 MG CAP (PRADAXA) PO SCH ×2 (08:48→20:09)
[2020-10-16] MEDS: ASCORBIC ACID 500 MG TAB PO SCH (08:48)
[2020-10-16] MEDS: allopurinoL 300 MG TAB PO SCH (08:48)
[2020-10-16] MEDS: MAGNESIUM OXIDE 400MG TAB (MAG-OX) PO SCH ×2 (08:48→20:07)
[2020-10-16] MEDS: ASPIRIN 81 MG ENTERIC TAB PO SCH (08:48)
--- NOTE | 2020-10-16 10:24 | ECHO ---
DATE OF PROCEDURE: 10/15/2020 Age: 74 Gender: Male Height: 178 cm Weight: 115 kg REFERRING PHYSICIAN: Jn Jacinto DO INDICATION: Heart failure, unspecified. MEASUREMENTS: 2D Measurements: Left ventricle diastole 6.6 cm Intraventricular septum 1.11 cm Posterior wall 0.94 cm Aortic root 3.0 cm LVOT 2.52 cm Left atrium 4.8 cm Right ventricle 5.3 cm Left atrial volume index 36 Inferior vena cava 2.7 cm with marked reduction of respiratory variation Doppler Measurements: No aortic stenosis No aortic regurgitation Aortic valve velocity 145 cm/s LVOT velocity 92.0 cm/s LVOT VTI 14.9 cm Severe mitral regurgitation No mitral stenosis Mitral E velocity 113 cm/s Mitral deceleration time 166 msec Very mild tricuspid regurgitation Estimated right ventricular systolic pressure at least 53 mmHg estimating CVP of at least 20 mmHg No pulmonic regurgitation MITRAL ANNULAR TISSUE DOPPLER E prime septal 7.6 cm/s, E prime lateral 5.3 cm/s DESCRIPTION: Rhythm appeared to be predominantly ventricular paced. Suspect atrial fibrillation. This was a moderately technically difficult echocardiogram. This was a 2D, M-mode, color flow Doppler, and pulsed wave Doppler examination including mitral annular tissue Doppler. CONCLUSIONS: 1. Moderate dilatation of the left ventricle with normal LV wall thickness. Paradoxical septal motion with [id number] global LV hypokinesis elsewhere. Severe reduction of overall LV systolic function. LVEF of 25% by visual estimate. Appearance of low cardiac output state. 2. Mild-moderate mitral annular calcification. No mitral stenosis. Severe mitral regurgitation. 3. Moderate left atrial dilatation by left atrial volume index. 4. Suggestive of moderate elevation of estimated right ventricle systolic pressure. Very mild tricuspid regurgitation. 5. Mild-moderate aortic valve sclerosis of a 3-cuspid aortic valve. No aortic stenosis or regurgitation. 6. Suggestive of moderate elevation of estimated right ventricle systolic pressure. Mild right ventricle dilatation. Normal RV systolic function. Moderate right atrial dilatation. 7. Suggestive of elevated CVP of at least 20 mmHg. Inferior vena cava dilatation. 8. Presence of a cardiac rhythm business management consultant seen in the right ventricle coursing towards the right ventricle apex, which has the appearance of an ICD lead. 9. No pericardial effusion. 10. Moderately technically difficult echocardiogram. [facility]
--- NOTE | 2020-10-16 10:30 | IPNPDOC ---
Text Note Date of Service The patient was seen on 10/16/20. NOTE Subjective: No any acute events overnight. Patient stated that he feels better today. Patient developed a good urine output overnight Objective: GENERAL APPEARANCE: NAD HEENT: no scleral icterus, plus JVD, EOMI CARDIOVASCULAR: Irregularly irregular LUNGS: CTA ABDOMEN: soft & not tender w palpitation MUSCULOSKELETAL: +2 pitting of lower extremities NEUROLOGICAL: cranial nerve function from 2-12 intact intact, follows commands, speech not dysarthric Assessment/Plan Patient is 74 years old male with past medical history of atrial fibrillation, AICD placement, hyperlipidemia, systolic CHF presented to the hospital with shortness of breath. Patient is poor historian, he stated that he stopped taking his diuretics, he explained because he was thinking he has UTI. He has been having increased shortness of breath for past 5-6 days with orthopnea and leg swelling. In ER patient was found to have white blood count of 14, hemoglobin 12, potassium 5.4, creatinine 2.01, BNP 2397. X-ray showed cardiomegaly with interstitial edema. Problems (1) CHF (congestive heart failure) Systolic CHF exacerbation Secondary to noncompliance to medications I's and O's Lasix IV Echo pending Cardiac diet (2) GABBY (acute kidney injury) Improved today Prerenal due to intravascular depletion secondary to CHF exacerbation Continue to monitor (3) Shortness of breath Resolved Secondary to CHF exacerbation See above (4) Atrial fibrillation Heart rate under control Continue home cardioprotective medications (5) Hyperkalemia Resolved (6) Leukocytosis/UTI Patient afebrile, looked nontoxic Most likely secondary to UTI, UA showed pyuria Started ceftriaxone yesterday, leukocytosis improved Await urine culture VS,Leticia, I+O VS, Leticia, I+O Laboratory Tests 10/15/20 12:07 10/15/20 15:34 10/15/20 19:35 10/15/20 23:54 10/16/20 04:09 10/16/20 05:52 10/16/20 07:44 Vital Signs Date Time Temp Pulse Resp B/P (MAP) Pulse Ox O2 Delivery O2 Flow Rate FiO2 10/16/20 08:48 80 138/87 10/16/20 08:00 96.7 17 Nasal Cannula 2.0 10/16/20 04:00 96 10/15/20 11:07 30 I&O- Last 24 Hours up to 6 AM 10/16/20 06:00 Intake Total 890 ml Output Total 1200 ml Balance -310 ml CARRIE CRISTOBAL DO Oct 16, 2020 10:30
[2020-10-16 12:00] VITALS: BP 133/80
[2020-10-16] MEDS: FUROSEMIDE 40MG/4ML VIAL (J1940) IV SCH ×2 (12:31)
[2020-10-16 15:05] VITALS: BP 119/68
[2020-10-16] MEDS: cefTRIAXone SOD 2 GM in D5W MINI-BAG PLUS 50 ML IV SCH (17:22)
[2020-10-16] MEDS ORDERED: MIRALAX *UNIT DOSE* 17GM PACKET PO PRN (17:40)
[2020-10-16] MEDS: SIMVASTATIN 10 MG TAB PO SCH (20:07)
[2020-10-16 22:00] VITALS: BP 124/73
[2020-10-17] MEDS: FUROSEMIDE 40MG/4ML VIAL (J1940) IV SCH (00:03)
[2020-10-17] MEDS: SLF 3 ML SYR IV SCH (05:00)
[2020-10-17 05:55] LABS: HEMATOCRIT 31.7 % (42.0-52.0); HEMOGLOBIN 10.2 g/dl (13.5-17.5); MEAN CORPUSCULAR HEMOGLOBIN 32.3 pg (27.0-33.0); MEAN CORPUSCULAR HGB CONC 32.2 g/dl (32.0-36.5); MEAN CORPUSCULAR VOLUME 100.3 fl (80.0-96.0); PLATELET COUNT, AUTOMATED 202 10^3/uL (150-450); RED BLOOD COUNT 3.16 10^6/uL (4.30-6.10); WHITE BLOOD COUNT 13.6 10^3/uL (4.0-10.0)
[2020-10-17 06:00] VITALS: BP 119/71
--- NOTE | 2020-10-17 06:15 | ECGEPIP ---
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
[2020-10-17 06:46] LABS: BILIRUBIN,TOTAL 1.3 MG/DL (0.2-1.0); CALCIUM LEVEL 8.4 MG/DL (8.8-10.2); CREATININE FOR GFR 2.01 MG/DL (0.70-1.30); GLOMERULAR FILTRATION RATE 34.6 (>42); TOTAL PROTEIN 6.4 GM/DL (6.4-8.2)
[2020-10-17] MEDS: MAGNESIUM OXIDE 400MG TAB (MAG-OX) PO SCH (08:32)
[2020-10-17] MEDS: DABIGATRAN ETEXILATE 75 MG CAP (PRADAXA) PO SCH (08:32)
[2020-10-17] MEDS: allopurinoL 300 MG TAB PO SCH (08:32)
[2020-10-17] MEDS: ASCORBIC ACID 500 MG TAB PO SCH (08:32)
[2020-10-17] MEDS: ASPIRIN 81 MG ENTERIC TAB PO SCH (08:32)
[2020-10-17] MEDS: HumaLOG INSULIN (NovoLOG) PER UNIT SC SCH (08:34)
[2020-10-17] MEDS: AMIODARONE 200 MG TAB (PACERONE) PO SCH (08:34)
[2020-10-17 08:40] VITALS: BP 118/71
[2020-10-17] MEDS: bisoproloL fumarate 5 MG TAB PO SCH (08:40)
[2020-10-17] MEDS ORDERED: FUROSEMIDE 40MG/4ML VIAL (J1940) IV SCH (09:00)
[2020-10-17] MEDS ORDERED: LASI40TA9 PO (10:01)
[2020-10-17] MEDS ORDERED: LEVO250T12 PO (10:01)
--- NOTE | 2020-10-17 13:24 | DS.PDOC ---
Discharge Summary General Date of Admission Oct 15, 2020 at 11:35 Date of Discharge 10/17/20 Discharge Summary PROCEDURES PERFORMED DURING STAY: [None]. ADMITTING DIAGNOSES: CHF (congestive heart failure) GABBY (acute kidney injury) Shortness of breath Atrial fibrillation Hyperkalemia Leukocytosis/UTI DISCHARGE DIAGNOSES: CHF (congestive heart failure) GABBY (acute kidney injury) Shortness of breath Atrial fibrillation Hyperkalemia Leukocytosis/UTI COMPLICATIONS/CHIEF COMPLAINT: Chf Hypoxia. HISTORY OF PRESENT ILLNESS:Patient is 74 years old male with past medical history of atrial fibrillation, AICD placement, hyperlipidemia, systolic CHF presented to the hospital with shortness of breath. Patient is poor historian, he stated that he stopped taking his diuretics, he explained because he was thinking he has UTI. He has been having increased shortness of breath for past 5-6 days with orthopnea and leg swelling. In ER patient was found to have white blood count of 14, hemoglobin 12, potassium 5.4, creatinine 2.01, BNP 2397. X- ray showed cardiomegaly with interstitial edema. HOSPITAL COURSE: During the hospital stay the following issues addressed (1) CHF (congestive heart failure) Systolic CHF exacerbation Secondary to noncompliance to medications I's and O's Patient received intensive diuresis with Lasix IV Echo pending Cardiac diet (2) GABBY (acute kidney injury) Improved today Prerenal due to intravascular depletion secondary to CHF exacerbation Continue to monitor (3) Shortness of breath Resolved Secondary to CHF exacerbation See above (4) Atrial fibrillation Heart rate under control Continue home cardioprotective medications (5) Hyperkalemia Resolved (6) Leukocytosis/UTI Patient afebrile, looked nontoxic Most likely secondary to UTI, UA showed pyuria. UA positive for Escherichia coli Patient received ceftriaxone with positive effect DISCHARGE MEDICATIONS: Please see below. ALLERGIES: Please see below. PHYSICAL EXAMINATION ON DISCHARGE: GENERAL APPEARANCE: NAD HEENT: no scleral icterus, plus JVD, EOMI CARDIOVASCULAR: Irregularly irregular LUNGS: CTA ABDOMEN: soft & not tender w palpitation MUSCULOSKELETAL: +2 pitting of lower extremities NEUROLOGICAL: cranial nerve function from 2-12 intact intact, follows commands, speech not dysarthric LABORATORY DATA: Please see below. IMAGING: HEALTH SYSTEM NAME: LEEANNA GONZALEZ : 1945 MEDICAL REC #: [id number] ROOM: M PCU ACCOUNT: [id number] ORDERING DOCTOR: CARRIE JACINTO DO PATIENT STATUS: ADM IN DICTATING DOCTOR: Vimal Wilson MD [facility] REPORT #: [id number] cc: [~ rep ct ivnm] ECHOCARDIOGRAM-DOPPLER REPORT Printed: [~ rep prt dt last] [~ rep prt tm last] Page 3 of [address] [address] ECHOCARDIOGRAM-DOPPLER REPORT ECHOCARDIOGRAM-DOPPLER REPORT Printed: [~ rep prt dt last] [~ rep prt tm last] Page 1 of 3 Age: 74 Gender: Male Height: 178 cm Weight: 115 kg REFERRING PHYSICIAN: Carrie Jacinto DO INDICATION: Heart failure, unspecified. MEASUREMENTS: 2D Measurements: Left ventricle diastole 6.6 cm Intraventricular septum 1.11 cm Posterior wall 0.94 cm Aortic root 3.0 cm LVOT 2.52 cm Left atrium 4.8 cm Right ventricle 5.3 cm Left atrial volume index 36 Inferior vena cava 2.7 cm with marked reduction of respiratory variation Doppler Measurements: No aortic stenosis No aortic regurgitation Aortic valve velocity 145 cm/s LVOT velocity 92.0 cm/s LVOT VTI 14.9 cm Severe mitral regurgitation No mitral stenosis Mitral E velocity 113 cm/s Mitral deceleration time 166 msec Very mild tricuspid regurgitation Estimated right ventricular systolic pressure at least 53 mmHg estimating CVP of at least 20 mmHg No pulmonic regurgitation MITRAL ANNULAR TISSUE DOPPLER E prime septal 7.6 cm/s, E prime lateral 5.3 cm/s DESCRIPTION: Rhythm appeared to be predominantly ventricular paced. Suspect atrial fibrillation. This was a moderately technically difficult echocardiogram.This was a 2D, M-mode, color flow Doppler, and pulsed wave Doppler examination including mitral annular tissue Doppler. CONCLUSIONS: 1. Moderate dilatation of the left ventricle with normal LV wall thickness. Paradoxical septal motion with [id number] global LV hypokinesis elsewhere.Severe reduction of overall LV systolic function. LVEF of 25% by visual estimate. Appearance of low cardiac output state. 2. Mild-moderate mitral annular calcification. No mitral stenosis. Severe mitral regurgitation. 3. Moderate left atrial dilatation by left atrial volume index. 4. Suggestive of moderate elevation of estimated right ventricle systolic pressure. Very mild tricuspid regurgitation. 5. Mild-moderate aortic valve sclerosis of a 3-cuspid aortic valve. No aortic stenosis or regurgitation. 6. Suggestive of moderate elevation of estimated right ventricle systolic pressure. Mild right ventricle dilatation. Normal RV systolic function. Moderateright atrial dilatation. 7. Suggestive of elevated CVP of at least 20 mmHg. Inferior vena cava dilatation. 8. Presence of a cardiac rhythm clinical data management director seen in the right ventricle coursing towards the right ventricle apex, which has the appearance of an ICD lead. 9. No pericardial effusion. 10. Moderately technically difficult echocardiogram. DD: Vimal Wilson MD [facility] 10/15/20 [id number] DS: DS2: [~ rep ct labl] PROGNOSIS: Fair ACTIVITY: [As tolerated]. DIET: Cardiac DISPOSITION: Home, Self-Care. DISCHARGE INSTRUCTIONS: Follow-up with application operations engineer DISCHARGE CONDITION: [Stable]. TIME SPENT ON DISCHARGE:30 minutes. Vital Signs/I&Os Vital Signs Date Time Temp Pulse Resp B/P (MAP) Pulse Ox O2 Delivery O2 Flow Rate FiO2 10/17/20 08:40 80 118/71 10/17/20 06:00 97.0 18 95 Room Air 10/16/20 08:00 2.0 10/15/20 11:07 30 I&O- Last 24 Hours up to 6 AM 10/17/20 06:00 Intake Total 2510 ml Output Total 4550 ml Balance -2040 ml Laboratory Data Labs 24H Laboratory Tests 2 10/16/20 16:20: Bedside Glucose (Misc Panel) 187H 10/16/20 20:06: Bedside Glucose (Misc Panel) 213H 10/17/20 05:30: Nucleated Red Blood Cells % (auto) 0.0, Anion Gap 8, Glomerular Filtration Rate 34.6L, Calcium Level 8.4L, Magnesium Level 2.0, Total Bilirubin 1.3H, Aspartate Amino Transf (AST/SGOT) 22, Alanine Aminotransferase (ALT/SGPT) 46, Alkaline Phosphatase 52, Total Protein 6.4, Albumin 3.0#L, Albumin/Globulin Ratio 0.9 CBC/BMP Laboratory Tests 10/17/20 05:30 FSBS Laboratory Tests Test 10/16/20 16:20 10/16/20 20:06 Range/Units Bedside Glucose (Misc Panel) 187 213 83-110 MG/DL Microbiology Microbiology 10/15/20 Blood Culture - Preliminary, Resulted No growth after 24 hours . All specim... 10/15/20 Blood Culture - Preliminary, Resulted No growth after 24 hours . All specim... 10/15/20 Urine Culture - Final, Complete Escherichia Coli 10/15/20 Respiratory Virus Panel (PCR) (OCTAVIANO) - Final, Complete Discharge Medications Scheduled Allopurinol (Zyloprim) 300 Mg Tab, 300 MG PO DAILY, (Reported) Amiodarone HCl (Amiodarone HCl) 200 Mg Tablet, 200 MG PO TID, (Reported) DECREASE TO BID DOSING ON 11/12/20 Ascorbic Acid (Vitamin C) 500 Mg Tab, 1,000 MG PO DAILY, (Reported) Aspirin (Aspirin EC) 81 Mg Tablet.dr, 81 MG PO DAILY, (Reported) Bisoprolol Fumarate (Bisoprolol Fumarate) 10 Mg Tablet, 10 MG PO BID, (Reported) Dabigatran Etexilate Mesylate (Pradaxa) 150 Mg Cap, 150 MG PO BID, (Reported) Furosemide (Lasix) 40 Mg Tablet, 40 MG PO DAILY Levofloxacin (Levofloxacin) 250 Mg Tablet, 250 MG PO DAILY Magnesium Oxide (Magnesium) 400 Mg Capsule, 400 MG PO BID, (Reported) Metformin HCl (Metformin HCl) 1,000 Mg Tab, 1,000 MG PO BID, (Reported) Multivitamins (Thera M Plus Tablet) 1 Each Tablet, 1 TAB PO DAILY, (Reported) Sacubitril/Valsartan (Entresto 24 mg-26 mg Tablet) 1 Each Tablet, 1 TAB PO BID, (Reported) Simvastatin (Simvastatin) 10 Mg Tab, 10 MG PO QHS, (Reported) Allergies Coded Allergies: atorvastatin (Verified Adverse Reaction, Mild, MUSCLE STIFFNESS, 10/15/20) CARRIE JACINTO DO Oct 17, 2020 13:24
== END 2020-10-17 11:46 | disposition home or self-care (01) | DRG 292 ==
LOC: M ED 09:16 → M ED INP 11:35 → ENRESERV 11:51 → M PCU 12:26 → M MSPAV 10-16 15:04
PROVIDERS: ADMIT Internal Medicine; ATTEND Internal Medicine
DX: I50.23 Acute on chronic systolic (congestive) heart failure (principal); N17.9 Acute kidney failure, unspecified; I48.20 Chronic atrial fibrillation, unspecified; N39.0 Urinary tract infection, site not specified; E78.5 Hyperlipidemia, unspecified; E87.5 Hyperkalemia; E11.9 Type 2 diabetes mellitus without complications; B96.20 Unspecified Escherichia coli [E. coli] as the cause of diseases classified elsewhere; Z91.14 Patient's other noncompliance with medication regimen; Z79.82 Long term (current) use of aspirin; Z79.899 Other long term (current) drug therapy; Z88.8 Allergy status to other drugs, medicaments and biological substances; Z79.84 Long term (current) use of oral hypoglycemic drugs

== ENCOUNTER → 2020-11-03 | Outpatient (REF) | payer MEDICARE ==
[~2020-11-03] MED LIST changes: +AMIO200T3 PO; +ASPI81TA26 PO; +BISO10TA14 PO; +LASI40TA9 PO; +LEVO250T12 PO; +MAGN400C PO; +VITMTA PO
[2020-11-03 18:22] LABS: CALCIUM LEVEL 9.7 MG/DL (8.8-10.2); CREATININE FOR GFR 2.34 MG/DL (0.70-1.30); MAGNESIUM LEVEL 2.2 MG/DL (1.8-2.4)
== END ==
LOC: M LABDRWAD 16:37
PROVIDERS: ATTEND Physician Assistant
DX: I50.42 Chronic combined systolic (congestive) and diastolic (congestive) heart failure (principal)

== ENCOUNTER → 2020-12-02 | Outpatient (REF) | payer MEDICARE ==
[2020-12-02 13:49] LABS: CALCIUM LEVEL 9.7 MG/DL (8.8-10.2); CREATININE FOR GFR 1.6 MG/DL (0.70-1.30); POTASSIUM SERUM 4.6 MEQ/L (3.5-5.1)
== END ==
LOC: M LABDRWAD 12:23
PROVIDERS: ATTEND Physician Assistant
DX: I50.42 Chronic combined systolic (congestive) and diastolic (congestive) heart failure (principal)

== ENCOUNTER → 2021-01-13 | Outpatient (REF) | payer MEDICARE ==
[2021-01-13 12:25] LABS: CALCIUM LEVEL 9.4 MG/DL (8.8-10.2); CREATININE FOR GFR 1.57 MG/DL (0.70-1.30); MAGNESIUM LEVEL 2.3 MG/DL (1.8-2.4)
== END ==
LOC: M LABDRWAD 11:17
PROVIDERS: ATTEND Physician Assistant
DX: I50.42 Chronic combined systolic (congestive) and diastolic (congestive) heart failure (principal); E11.69 Type 2 diabetes mellitus with other specified complication

== ENCOUNTER → 2021-01-13 | Outpatient (REF) | payer MEDICARE ==
[2021-01-13 12:03] LABS: HEMOGLOBIN A1c 5.6 %
[2021-01-13 12:27] LABS: CHOLESTEROL RISK RATIO 2.843 (<5)
== END ==
LOC: M LABDRWAD 11:19
PROVIDERS: ATTEND Physician Assistant Medical
DX: E11.69 Type 2 diabetes mellitus with other specified complication (principal)

== ENCOUNTER → 2021-03-06 | Outpatient (CLI) | payer MEDICARE ==
[~2021-03-06] MED LIST changes: +ALLO10TA PO; +ECOT81TA5 PO; +LISI10TA22 PO; +METF-877 PO; +PACE200T PO
== END ==
LOC: M LABSMTC 09:23
PROVIDERS: ATTEND Anesthesiology
DX: Z01.818 Encounter for other preprocedural examination (principal); Z20.822 Contact with and (suspected) exposure to COVID-19

== ENCOUNTER → 2021-03-20 | Outpatient (CLI) | payer MEDICARE | LOC: M LABSMTC 10:14 | PROVIDERS: ATTEND Anesthesiology | DX: Z01.818 Encounter for other preprocedural examination (principal) ==

== ENCOUNTER 2021-03-25 06:55 | Day surgery (SDC) | payer MEDICARE ==
[~2021-03-25] VITALS: Ht 180.3 cm; Wt 113.9 kg
[2021-03-25] MEDS ORDERED: LIDOCAINE 2% 100MG/5ML SDV (FOR ANES.) As Ordered ONE (06:57)
[2021-03-25] MEDS ORDERED: propofoL 200 MG/20 ML VIAL As Ordered ONE (06:57)
--- NOTE | 2021-03-25 08:27 | ROOR ---
Patient Name: Roderick Woodall Procedure Date: 03/25/2021 8:05 AM Date of : 1945 Age: 75 Room: [facility] Gender: Male Note Status: Finalized Procedure: Colonoscopy Indications: Rectal bleeding Providers: Rony Davey Jr, MD Referring MD: Lizabeth Colon MD Requesting Provider: Medicines: Propofol per Anesthesia Complications: No immediate complications. Procedure: Pre-Anesthesia Assessment: - Prior to the procedure, a History and Physical was performed, and patient medications and allergies were reviewed. The patient is competent. The risks and benefits of the procedure and the sedation options and risks were discussed with the patient. All questions were answered and informed consent was obtained. Patient identification and proposed procedure were verified by the physician and the nurse in the pre-procedure area and in the procedure room. Mental Status Examination: alert and oriented. Airway Examination: normal oropharyngeal airway and neck mobility. Respiratory Examination: clear to auscultation. CV Examination: normal. ASA Grade Assessment: II - A patient with mild systemic disease. After reviewing the risks and benefits, the patient was deemed in satisfactory condition to undergo the procedure. The anesthesia plan was to use moderate sedation / analgesia (conscious sedation). Immediately prior to administration of medications, the patient was re-assessed for adequacy to receive sedatives. The heart rate, respiratory rate, oxygen saturations, blood pressure, adequacy of pulmonary ventilation, and response to care were monitored throughout the procedure. The physical status of the patient was re-assessed after the procedure. The Colonoscope was introduced through the anus and advanced to the cecum, identified by appendiceal orifice and ileocecal valve. The colonoscopy was performed without difficulty. The patient tolerated the procedure well. The quality of the bowel preparation was adequate. Findings: The rectum, sigmoid colon, descending colon, transverse colon, ascending colon, cecum, appendiceal orifice and ileocecal valve appeared normal. Non-bleeding external and internal hemorrhoids were found during endoscopy. The hemorrhoids were Grade II (internal hemorrhoids that prolapse but reduce spontaneously). A diminutive polyp was found in the recto-sigmoid colon. The polyp was hyperplastic. The polyp was removed with a jumbo cold forceps. Resection and retrieval were complete. Impression: - The rectum, sigmoid colon, descending colon, transverse colon, ascending colon, cecum, appendiceal orifice and ileocecal valve are normal. - Non-bleeding external and internal hemorrhoids. - One diminutive polyp at the recto-sigmoid colon, removed with a jumbo cold forceps. Resected and retrieved. Recommendation: - Discharge patient to home (ambulatory). - Repeat colonoscopy in 5-10 years for surveillance based on pathology results. Procedure Code(s): --- Professional --- 57724, Colonoscopy, flexible; with biopsy, single or multiple Diagnosis Code(s): --- Professional --- K64.1, Second degree hemorrhoids K63.5, Polyp of colon K62.5, Hemorrhage of anus and rectum CPT copyright 2019 [employer]. All rights reserved. The codes documented in this report are preliminary and upon medical assembly review may be revised to meet current compliance requirements. Rony Davey MD Rony Davey Jr, MD 03/25/2021 8:27:24 AM Electronically signed by Rony Davey Jr, MD Number of Addenda: 0 Note Initiated On: 03/25/2021 8:05 AM Estimated Blood Loss: Estimated blood loss: none.
[2021-03-25 08:58] VITALS: BP 104/61
== END 2021-03-25 09:00 | disposition home or self-care (01) ==
LOC: M OPP 06:55
PROVIDERS: ATTEND Surgery
DX: K62.5 Hemorrhage of anus and rectum (principal); D12.6 Benign neoplasm of colon, unspecified; K64.1 Second degree hemorrhoids; I25.10 Atherosclerotic heart disease of native coronary artery without angina pectoris; I50.9 Heart failure, unspecified; I11.0 Hypertensive heart disease with heart failure; I48.91 Unspecified atrial fibrillation; E78.5 Hyperlipidemia, unspecified; E11.9 Type 2 diabetes mellitus without complications; M10.9 Gout, unspecified; M19.90 Unspecified osteoarthritis, unspecified site; Z87.891 Personal history of nicotine dependence; Z88.8 Allergy status to other drugs, medicaments and biological substances; Z91.018 Allergy to other foods; Z79.82 Long term (current) use of aspirin; Z79.84 Long term (current) use of oral hypoglycemic drugs; Z79.899 Other long term (current) drug therapy

== ENCOUNTER → 2021-04-21 | Outpatient (CLI) | payer MEDICARE ==
--- NOTE | 2021-04-21 14:37 | REP ---
INDICATION: PERMANENT ATRIAL FIBRILLATION. COMPARISON: 10/15/2020 a portable exam TECHNIQUE: PA and lateral FINDINGS: There is cardiomegaly status quo. The single chamber bipolar pacemaker device is unchanged. The interstitial edema seen on the prior exam has resolved. No abnormal opacities have developed. The pleural angles are sharp. The osseous structures are stable. IMPRESSION: Cardiomegaly without evidence of acute cardiopulmonary disease. <Electronically signed by Paco Caceres > 04/21/21 [id number]
[2021-04-21 16:44] LABS: ALBUMIN 3.8 GM/DL (3.2-5.2); BILIRUBIN,TOTAL 1.1 MG/DL (0.2-1.0); CALCIUM LEVEL 10.1 MG/DL (8.8-10.2); CREATININE FOR GFR 2.41 MG/DL (0.70-1.30); MAGNESIUM LEVEL 2.6 MG/DL (1.8-2.4); POTASSIUM SERUM 4.3 MEQ/L (3.5-5.1); THYROID STIMULATING HORMONE 5.83 uIU/ML (0.358-3.740); TOTAL PROTEIN 7.2 GM/DL (6.4-8.2)
== END ==
LOC: M WUC 14:16
PROVIDERS: ATTEND Physician Assistant
DX: I50.42 Chronic combined systolic (congestive) and diastolic (congestive) heart failure (principal); I48.21 Permanent atrial fibrillation

== ENCOUNTER → 2021-04-27 | Outpatient (REF) | payer MEDICARE ==
[~2021-04-27] MED LIST changes: -AMIO200T3 PO; +AMIO200T49 PO; -LEVO250T12 PO; +LEVO250T3 PO
[2021-04-27 14:53] LABS: FREE T4 0.8 NG/DL (0.76-1.46); THYROID STIMULATING HORMONE 6.82 uIU/ML (0.358-3.740)
== END ==
LOC: M LABDRWAD 12:36
PROVIDERS: ATTEND Nurse Practitioner Family
DX: R94.6 Abnormal results of thyroid function studies (principal)

== ENCOUNTER → 2021-06-08 | Outpatient (REF) | payer MEDICARE ==
[~2021-06-08] MED LIST changes: +AMIO200T3 PO; -AMIO200T49 PO; +LEVO250T12 PO; -LEVO250T3 PO
[2021-06-08 14:59] LABS: CALCIUM LEVEL 5.6 MG/DL (8.8-10.2); CREATININE FOR GFR 2.1 MG/DL (0.70-1.30); GLOMERULAR FILTRATION RATE 32.9 (>42); MAGNESIUM LEVEL 2.6 MG/DL (1.8-2.4); POTASSIUM SERUM 4.7 MEQ/L (3.5-5.1)
== END ==
LOC: M LABDRWAD 12:36
PROVIDERS: ATTEND Physician Assistant
DX: I50.42 Chronic combined systolic (congestive) and diastolic (congestive) heart failure (principal)

== ENCOUNTER → 2021-06-08 | Outpatient (REF) | payer MEDICARE ==
[2021-06-08 14:01] LABS: FREE T4 0.92 NG/DL (0.76-1.46); THYROID STIMULATING HORMONE 5.51 uIU/ML (0.358-3.740)
== END ==
LOC: M LABDRWAD 12:34
PROVIDERS: ATTEND Nurse Practitioner Family
DX: E03.9 Hypothyroidism, unspecified (principal); I50.42 Chronic combined systolic (congestive) and diastolic (congestive) heart failure

== ENCOUNTER → 2021-06-09 | Outpatient (REF) | payer MEDICARE ==
[2021-06-09 18:40] LABS: CREATININE FOR GFR 2.11 MG/DL (0.70-1.30); GLOMERULAR FILTRATION RATE 32.7 (>42); POTASSIUM SERUM 4.5 MEQ/L (3.5-5.1)
== END ==
LOC: M LAB REF 17:39
PROVIDERS: ATTEND Physician Assistant
DX: I50.42 Chronic combined systolic (congestive) and diastolic (congestive) heart failure (principal)

== ENCOUNTER → 2021-06-10 | Outpatient (CLI) | payer MEDICARE ==
--- NOTE | 2021-06-10 13:11 | REP ---
INDICATION: CKD STAGE 4, RETENTION OF URINE. COMPARISON: None. TECHNIQUE: Real-time transvesical sonographic evaluation of the urinary bladder with Doppler FINDINGS: The pre void urinary bladder volume calculation is 164 cc and the postvoid urinary bladder volume calculation is 30 cc. This renders an 18% postvoid residual. Doppler imaging at the UV junction bilaterally showed no evidence of uro jet phenomena on either side. No gross urinary bladder abnormalities were identified. IMPRESSION: Findings as described above. <Electronically signed by Paco Caceres > 06/10/21 [id number]
--- NOTE | 2021-06-10 16:48 | REP ---
INDICATION: CKD STAGE 4, RETENTION OF URINE. COMPARISON: None. TECHNIQUE: Real-time sonographic evaluation of the kidneys with Doppler FINDINGS: Multiple ultrasonographic images of the right kidney show the right kidney to measure 12.4 x 6.8 x 6.2 cm. The renal cortical echotexture is unremarkable. There is mild to moderate diffuse renal cortical thinning. There are no masses. There is good corticomedullary differentiation. There is no hydronephrosis. There are no perinephric fluid collections. Multiple ultrasonographic images of the left kidney show the left kidney to measure 12.2 x 5.8 x 6.9 cm. The renal cortical echotexture is unremarkable. There is mild to moderate diffuse renal cortical thinning. There are no masses. There is good corticomedullary differentiation. There is no hydronephrosis. There are no perinephric fluid collections. IMPRESSION: Bilateral renal cortical atrophic change as described above. <Electronically signed by Paco Caceres > 06/10/21 [id number]
== END ==
LOC: M RAD 10:24
PROVIDERS: ATTEND Internal Medicine Nephrology
DX: R33.9 Retention of urine, unspecified (principal); N26.1 Atrophy of kidney (terminal)

== ENCOUNTER → 2021-07-20 | Outpatient (REF) | payer MEDICARE ==
[2021-07-20 13:01] LABS: HEMOGLOBIN A1c 5.9 %
[2021-07-20 13:19] LABS: CALCIUM LEVEL 9.6 MG/DL (8.8-10.2); CREATININE FOR GFR 1.87 MG/DL (0.70-1.30); FREE T4 0.98 NG/DL (0.76-1.46); GLOMERULAR FILTRATION RATE 37.6 (>42); POTASSIUM SERUM 4.7 MEQ/L (3.5-5.1); THYROID STIMULATING HORMONE 4.39 uIU/ML (0.358-3.740)
== END ==
LOC: M LABDRWAD 12:25
PROVIDERS: ATTEND Family Medicine
DX: E11.69 Type 2 diabetes mellitus with other specified complication (principal); E03.9 Hypothyroidism, unspecified

== ENCOUNTER → 2021-08-03 | Outpatient (REF) | payer MEDICARE ==
[2021-08-03 18:07] LABS: MALB URINE SIEMENS 10.6 MG/L
== END ==
LOC: M LAB REF 16:56
PROVIDERS: ATTEND Family Medicine
DX: E11.69 Type 2 diabetes mellitus with other specified complication (principal)

== ENCOUNTER → 2021-09-20 | Outpatient (REF) | payer MEDICARE ==
[~2021-09-20] MED LIST changes: -AMIO200T3 PO; +AMIO200T49 PO; -LEVO250T12 PO; +LEVO250T3 PO
[2021-09-20 14:07] LABS: ALBUMIN 3.9 GM/DL (3.2-5.2); BILIRUBIN,TOTAL 1.1 MG/DL (0.2-1.0); CALCIUM LEVEL 9.5 MG/DL (8.8-10.2); CHOLESTEROL RISK RATIO 3.272 (<5); CREATININE FOR GFR 2.38 MG/DL (0.70-1.30); GLOMERULAR FILTRATION RATE 28.4 (>42); POTASSIUM SERUM 4.7 MEQ/L (3.5-5.1); TOTAL PROTEIN 7.1 GM/DL (6.4-8.2)
[2021-09-21 08:36] LABS: MAGNESIUM LEVEL 2.3 MG/DL (1.7-2.2)
== END ==
LOC: M LABDRWAD 12:10
PROVIDERS: ATTEND Physician Assistant
DX: I50.42 Chronic combined systolic (congestive) and diastolic (congestive) heart failure (principal); I48.21 Permanent atrial fibrillation; Z71.3 Dietary counseling and surveillance; I42.0 Dilated cardiomyopathy

== ENCOUNTER → 2021-11-12 | Outpatient (CLI) | payer MEDICARE | LOC: M RAD 08:05 | PROVIDERS: ATTEND Internal Medicine Nephrology | DX: R18.8 Other ascites (principal) ==

== ENCOUNTER → 2021-12-23 | Outpatient (CLI) | payer MEDICARE ==
[2021-12-23 14:04] LABS: FREE T4 0.98 NG/DL (0.76-1.46); THYROID STIMULATING HORMONE 3.21 uIU/ML (0.358-3.740)
== END ==
LOC: M ADAMS 09:22
PROVIDERS: ATTEND Family Medicine
DX: E03.9 Hypothyroidism, unspecified (principal); I50.42 Chronic combined systolic (congestive) and diastolic (congestive) heart failure

== ENCOUNTER → 2021-12-23 | Outpatient (CLI) | payer MEDICARE ==
[2021-12-23 13:56] LABS: CALCIUM LEVEL 10.2 MG/DL (8.8-10.2); CREATININE FOR GFR 2.67 MG/DL (0.70-1.30); GLOMERULAR FILTRATION RATE 24.8 (>42); MAGNESIUM LEVEL 2.7 MG/DL (1.8-2.4); POTASSIUM SERUM 4.9 MEQ/L (3.5-5.1)
== END ==
LOC: M ADAMS 09:20
PROVIDERS: ATTEND Physician Assistant
DX: I50.42 Chronic combined systolic (congestive) and diastolic (congestive) heart failure (principal)

== ENCOUNTER → 2022-01-03 | Outpatient (CLI) | payer MEDICARE ==
[2022-01-03 13:19] LABS: CALCIUM LEVEL 9.4 MG/DL (8.8-10.2); CREATININE FOR GFR 2.25 MG/DL (0.70-1.30); GLOMERULAR FILTRATION RATE 30.3 (>42); MAGNESIUM LEVEL 2.4 MG/DL (1.8-2.4); POTASSIUM SERUM 4.8 MEQ/L (3.5-5.1)
== END ==
LOC: M ADAMS 10:16
PROVIDERS: ATTEND Physician Assistant
DX: I50.42 Chronic combined systolic (congestive) and diastolic (congestive) heart failure (principal)

== ENCOUNTER → 2022-03-02 | Outpatient (CLI) | payer MEDICARE ==
[2022-03-02 18:50] LABS: HEMOGLOBIN A1c 5.9 %
== END ==
LOC: M ADAMS 11:51
PROVIDERS: ATTEND Family Medicine
DX: E11.69 Type 2 diabetes mellitus with other specified complication (principal)

== ENCOUNTER → 2022-03-22 | Outpatient (CLI) | payer MEDICARE ==
[~2022-03-22] MED LIST changes: +LEVO1TAB38 PO; -LEVO250T3 PO
[2022-03-22 13:36] LABS: HEMATOCRIT 40.3 % (42.0-52.0); HEMOGLOBIN 13.1 g/dl (13.5-17.5); MEAN CORPUSCULAR HEMOGLOBIN 33.1 pg (27.0-33.0); MEAN CORPUSCULAR HGB CONC 32.5 g/dl (32.0-36.5); MEAN CORPUSCULAR VOLUME 101.8 fl (80.0-96.0); PLATELET COUNT, AUTOMATED 205 10^3/uL (150-450); RED BLOOD COUNT 3.96 10^6/uL (4.30-6.10); WHITE BLOOD COUNT 5.8 10^3/uL (4.0-10.0)
[2022-03-22 14:35] LABS: ALBUMIN 3.6 GM/DL (3.2-5.2); BILIRUBIN,TOTAL 0.9 MG/DL (0.2-1.0); CALCIUM LEVEL 9.5 MG/DL (8.8-10.2); CREATININE FOR GFR 2.37 MG/DL (0.70-1.30); GLOMERULAR FILTRATION RATE 28.5 (>42); MAGNESIUM LEVEL 2.5 MG/DL (1.8-2.4); POTASSIUM SERUM 4.7 MEQ/L (3.5-5.1)
== END ==
LOC: M ADAMS 11:09
PROVIDERS: ATTEND Physician Assistant
DX: I50.42 Chronic combined systolic (congestive) and diastolic (congestive) heart failure (principal); I48.21 Permanent atrial fibrillation; I42.0 Dilated cardiomyopathy

== ENCOUNTER → 2022-05-04 | Outpatient (CLI) | payer MEDICARE ==
[2022-05-04 13:56] LABS: CALCIUM LEVEL 9.8 MG/DL (8.8-10.2); CREATININE FOR GFR 2.13 MG/DL (0.70-1.30); GLOMERULAR FILTRATION RATE 32.2 (>42); POTASSIUM SERUM 4.6 MEQ/L (3.5-5.1)
== END ==
LOC: M LABDRWAD 11:01
PROVIDERS: ATTEND Physician Assistant
DX: I50.42 Chronic combined systolic (congestive) and diastolic (congestive) heart failure (principal)

== ENCOUNTER → 2022-06-08 | Outpatient (CLI) | payer MEDICARE ==
[2022-06-08 19:27] LABS: CALCIUM LEVEL 10.3 MG/DL (8.8-10.2); CREATININE FOR GFR 2.27 MG/DL (0.70-1.30); MAGNESIUM LEVEL 2.7 MG/DL (1.8-2.4)
== END ==
LOC: M LABDRWAD 13:40
PROVIDERS: ATTEND Physician Assistant
DX: I50.42 Chronic combined systolic (congestive) and diastolic (congestive) heart failure (principal)

== ENCOUNTER → 2022-07-25 | Outpatient (REF) | payer MEDICARE ==
[2022-07-25 14:02] LABS: BASO # 0.1 10^3/uL (0.0-0.2); BASO % 0.8 % (0.0-1.0); EOS # 0.2 10^3/uL (0.0-0.5); EOS % 2.6 % (0.0-3.0); HEMATOCRIT 41.7 % (42.0-52.0); HEMOGLOBIN 13.5 g/dl (13.5-17.5); LYMPH # 1.4 10^3/uL (1.5-5.0); LYMPH % 21.4 % (24.0-44.0); MEAN CORPUSCULAR HEMOGLOBIN 33.3 pg (27.0-33.0); MEAN CORPUSCULAR HGB CONC 32.4 g/dl (32.0-36.5); MONO # 0.7 10^3/uL (0.0-0.8); MONO % 10.3 % (2.0-8.0); NEUTROPHILS # 4.3 10^3/uL (1.5-8.5); NEUTROPHILS % 64.6 % (36.0-66.0); PLATELET COUNT, AUTOMATED 212 10^3/uL (150-450); RED BLOOD COUNT 4.05 10^6/uL (4.30-6.10); WHITE BLOOD COUNT 6.6 10^3/uL (4.0-10.0)
[2022-07-25 14:16] LABS: CREATININE, URINE 152.7 MG/DL
[2022-07-25 14:27] LABS: BILIRUBIN,TOTAL 1.2 MG/DL (0.3-1.2); CALCIUM LEVEL 9.6 MG/DL (8.3-10.6); CHOLESTEROL RISK RATIO 3.93 (<5); GLOMERULAR FILTRATION RATE 34.7 (>42); HDL CHOLESTEROL 43.2 MG/DL (>40); LDL CHOLESTEROL 72.8 MG/DL (<100); POTASSIUM SERUM 4.9 MMOL/L (3.5-5.1); TOTAL PROTEIN 7.2 G/DL (5.7-8.2)
[2022-07-25 14:28] LABS: FREE T4 1.33 NG/DL (0.89-1.76); THYROID STIMULATING HORMONE 4.498 uIU/ML (0.55-4.78)
[2022-07-25 16:17] LABS: HEMOGLOBIN A1c 5.6 % (4.0-6.0)
== END ==
LOC: M LABDRWAD 12:46
PROVIDERS: ATTEND Family Medicine
DX: E11.69 Type 2 diabetes mellitus with other specified complication (principal); E03.9 Hypothyroidism, unspecified; I50.42 Chronic combined systolic (congestive) and diastolic (congestive) heart failure

== ENCOUNTER → 2022-09-14 | Outpatient (CLI) | payer MEDICARE ==
[2022-09-14 13:49] LABS: HEMATOCRIT 39.3 % (42.0-52.0); HEMOGLOBIN 12.8 g/dl (13.5-17.5); MEAN CORPUSCULAR HEMOGLOBIN 33.5 pg (27.0-33.0); MEAN CORPUSCULAR HGB CONC 32.6 g/dl (32.0-36.5); MEAN CORPUSCULAR VOLUME 102.9 fl (80.0-96.0); PLATELET COUNT, AUTOMATED 239 10^3/uL (150-450); RED BLOOD COUNT 3.82 10^6/uL (4.30-6.10); WHITE BLOOD COUNT 7.6 10^3/uL (4.0-10.0)
[2022-09-14 14:14] LABS: ALBUMIN 3.7 G/DL (3.2-5.2); BILIRUBIN,TOTAL 0.9 MG/DL (0.3-1.2); CALCIUM LEVEL 9.5 MG/DL (8.3-10.6); CHOLESTEROL RISK RATIO 3.34 (<5); CREATININE FOR GFR 2.15 MG/DL (0.70-1.30); GLOMERULAR FILTRATION RATE 31.9 (>42); HDL CHOLESTEROL 47.2 MG/DL (>40); MAGNESIUM LEVEL 2.1 MG/DL (1.8-2.4); POTASSIUM SERUM 4.9 MMOL/L (3.5-5.1); TOTAL PROTEIN 6.8 G/DL (5.7-8.2)
== END ==
LOC: M ADAMS 07:36
PROVIDERS: ATTEND Physician Assistant
DX: I48.21 Permanent atrial fibrillation (principal); I50.42 Chronic combined systolic (congestive) and diastolic (congestive) heart failure; I42.0 Dilated cardiomyopathy; I25.10 Atherosclerotic heart disease of native coronary artery without angina pectoris; Z71.3 Dietary counseling and surveillance

== ENCOUNTER 2022-11-19 21:06 | Emergency (ER) | payer MEDICARE ==
[~2022-11-19] VITALS: Ht 149.9 cm; Wt 55.6 kg
[2022-11-19 21:48] VITALS: BP 125/69
[2022-11-19 22:08] LABS: BASO # 0.1 10^3/uL (0.0-0.2); BASO % 0.7 % (0.0-1.0); EOS # 0.3 10^3/uL (0.0-0.5); EOS % 3.7 % (0.0-3.0); HEMATOCRIT 40.8 % (42.0-52.0); HEMOGLOBIN 13.2 g/dl (13.5-17.5); LYMPH # 1.8 10^3/uL (1.5-5.0); LYMPH % 23.3 % (24.0-44.0); MEAN CORPUSCULAR HEMOGLOBIN 33.4 pg (27.0-33.0); MEAN CORPUSCULAR HGB CONC 32.4 g/dl (32.0-36.5); MEAN CORPUSCULAR VOLUME 103.3 fl (80.0-96.0); MONO # 0.6 10^3/uL (0.0-0.8); MONO % 8.4 % (2.0-8.0); NEUTROPHILS # 4.9 10^3/uL (1.5-8.5); NEUTROPHILS % 63.6 % (36.0-66.0); PLATELET COUNT, AUTOMATED 238 10^3/uL (150-450); RED BLOOD COUNT 3.95 10^6/uL (4.30-6.10); WHITE BLOOD COUNT 7.7 10^3/uL (4.0-10.0)
[2022-11-19 22:19] LABS: INR 0.92; PROTHROMBIN TIME 12.6 SECONDS (12.5-14.5)
[2022-11-19 22:36] LABS: BLOOD UREA NITROGEN 45 MG/DL (9-23); CALCIUM LEVEL 9.2 MG/DL (8.3-10.6); CARBON DIOXIDE LEVEL 29 MMOL/L (20-31); CHLORIDE LEVEL 98 MMOL/L (98-107); CK-MB VALUE MASS < 1.0 NG/ML (<3.6); CPK CREATINE PHOSPHOKINASE 166 U/L (46-171); CREATININE FOR GFR 2.16 MG/DL (0.70-1.30); GLOMERULAR FILTRATION RATE 31.6 (>42); GLUCOSE, FASTING 139 MG/DL (74-106); MAGNESIUM LEVEL 2.1 MG/DL (1.8-2.4); POTASSIUM SERUM 5.3 MMOL/L (3.5-5.1); SODIUM LEVEL 134 MMOL/L (136-145)
== END 2022-11-20 00:27 | disposition home or self-care (01) ==
LOC: M ED 21:06
DX: R00.2 Palpitations (principal); R07.89 Other chest pain; I48.91 Unspecified atrial fibrillation; I11.9 Hypertensive heart disease without heart failure; E11.9 Type 2 diabetes mellitus without complications; Z79.84 Long term (current) use of oral hypoglycemic drugs; E78.5 Hyperlipidemia, unspecified; Z88.8 Allergy status to other drugs, medicaments and biological substances; Z91.018 Allergy to other foods; Z79.899 Other long term (current) drug therapy; Z79.82 Long term (current) use of aspirin

== ENCOUNTER → 2023-01-31 | Outpatient (REF) | payer MEDICARE ==
[2023-01-31 14:17] LABS: BASO # 0.1 10^3/uL (0.0-0.2); BASO % 0.8 % (0.0-1.0); EOS # 0.2 10^3/uL (0.0-0.5); EOS % 3.8 % (0.0-3.0); LYMPH # 1.3 10^3/uL (1.5-5.0); LYMPH % 20.1 % (24.0-44.0); MEAN CORPUSCULAR HEMOGLOBIN 32.8 pg (27.0-33.0); MEAN CORPUSCULAR HGB CONC 31.7 g/dl (32.0-36.5); MEAN CORPUSCULAR VOLUME 103.5 fl (80.0-96.0); MONO # 0.6 10^3/uL (0.0-0.8); NEUTROPHILS # 4.1 10^3/uL (1.5-8.5); PLATELET COUNT, AUTOMATED 198 10^3/uL (150-450); RED BLOOD COUNT 3.96 10^6/uL (4.30-6.10); WHITE BLOOD COUNT 6.3 10^3/uL (4.0-10.0)
[2023-01-31 14:31] LABS: HEMOGLOBIN A1c 5.8 % (4.0-6.0)
== END ==
LOC: M LABDRWAD 13:07
PROVIDERS: ATTEND Registered Nurse
DX: E11.69 Type 2 diabetes mellitus with other specified complication (principal)

== ENCOUNTER → 2023-02-15 | Outpatient (REF) | payer MEDICARE ==
[2023-02-15 15:35] LABS: CALCIUM LEVEL 9.4 MG/DL (8.3-10.6); CREATININE FOR GFR 1.85 MG/DL (0.70-1.30); GLOMERULAR FILTRATION RATE 37.8 (>42); MAGNESIUM LEVEL 2.1 MG/DL (1.8-2.4); POTASSIUM SERUM 4.3 MMOL/L (3.5-5.1)
== END ==
LOC: M LABDRWAD 12:26
PROVIDERS: ATTEND Physician Assistant
DX: I50.42 Chronic combined systolic (congestive) and diastolic (congestive) heart failure (principal)

== ENCOUNTER → 2023-05-22 | Outpatient (CLI) | payer MEDICARE ==
[2023-05-22 13:10] LABS: HEMOGLOBIN 13.9 g/dl (13.5-17.5); MEAN CORPUSCULAR HEMOGLOBIN 33.8 pg (27.0-33.0); MEAN CORPUSCULAR HGB CONC 33.1 g/dl (32.0-36.5); MEAN CORPUSCULAR VOLUME 102.2 fl (80.0-96.0); PLATELET COUNT, AUTOMATED 214 10^3/uL (150-450); RED BLOOD COUNT 4.11 10^6/uL (4.30-6.10)
[2023-05-22 13:51] LABS: ALBUMIN 3.7 G/DL (3.2-5.2); BILIRUBIN,DIRECT 0.3 MG/DL (<0.4); MAGNESIUM LEVEL 2.3 MG/DL (1.8-2.4); TOTAL PROTEIN 6.7 G/DL (5.7-8.2)
== END ==
LOC: M ADAMS 07:30
PROVIDERS: ATTEND Physician Assistant
DX: I48.21 Permanent atrial fibrillation (principal)

== ENCOUNTER → 2023-09-11 | Outpatient (REF) | payer MEDICARE ==
[2023-09-11 15:23] LABS: HEMATOCRIT 41.3 % (42.0-52.0); HEMOGLOBIN 13.1 g/dl (13.5-17.5); MEAN CORPUSCULAR HEMOGLOBIN 33.4 pg (27.0-33.0); MEAN CORPUSCULAR HGB CONC 31.7 g/dl (32.0-36.5); MEAN CORPUSCULAR VOLUME 105.4 fl (80.0-96.0); PLATELET COUNT, AUTOMATED 236 10^3/uL (150-450); RED BLOOD COUNT 3.92 10^6/uL (4.30-6.10); WHITE BLOOD COUNT 7.2 10^3/uL (4.0-10.0)
[2023-09-11 15:39] LABS: ALBUMIN 3.5 G/DL (3.2-5.2); BILIRUBIN,TOTAL 0.9 MG/DL (0.3-1.2); CALCIUM LEVEL 9.3 MG/DL (8.3-10.6); CHOLESTEROL RISK RATIO 3.57 (<5); CREATININE FOR GFR 1.79 MG/DL (0.70-1.30); GLOMERULAR FILTRATION RATE 39.3 (>42); HDL CHOLESTEROL 43.4 MG/DL (>40); MAGNESIUM LEVEL 2.2 MG/DL (1.8-2.4); NON-HDL-C 111.6 MG/DL; POTASSIUM SERUM 4.6 MMOL/L (3.5-5.1); TOTAL PROTEIN 6.6 G/DL (5.7-8.2)
== END ==
LOC: M LABDRWAD 13:19
PROVIDERS: ATTEND Physician Assistant
DX: I50.42 Chronic combined systolic (congestive) and diastolic (congestive) heart failure (principal); I25.10 Atherosclerotic heart disease of native coronary artery without angina pectoris; I48.21 Permanent atrial fibrillation; E78.00 Pure hypercholesterolemia, unspecified

== ENCOUNTER → 2023-11-29 | Outpatient (REF) | payer MEDICARE ==
[2023-11-29 18:45] LABS: BASO # 0.1 10^3/uL (0.0-0.2); BASO % 0.7 % (0.0-1.0); EOS # 0.2 10^3/uL (0.0-0.5); EOS % 2.6 % (0.0-3.0); HEMATOCRIT 42.8 % (42.0-52.0); HEMOGLOBIN 13.9 g/dl (13.5-17.5); LYMPH # 1.3 10^3/uL (1.5-5.0); LYMPH % 15.7 % (24.0-44.0); MEAN CORPUSCULAR HGB CONC 32.5 g/dl (32.0-36.5); MEAN CORPUSCULAR VOLUME 104.6 fl (80.0-96.0); MONO # 0.7 10^3/uL (0.0-0.8); MONO % 8.4 % (2.0-8.0); NEUTROPHILS # 6.1 10^3/uL (1.5-8.5); NEUTROPHILS % 72.4 % (36.0-66.0); PLATELET COUNT, AUTOMATED 219 10^3/uL (150-450); RED BLOOD COUNT 4.09 10^6/uL (4.30-6.10); WHITE BLOOD COUNT 8.5 10^3/uL (4.0-10.0)
[2023-11-29 19:02] LABS: ALBUMIN 3.9 G/DL (3.2-5.2); CALCIUM LEVEL 10.2 MG/DL (8.3-10.6); CREATININE FOR GFR 1.92 MG/DL (0.70-1.30); GLOMERULAR FILTRATION RATE 36.1 (>42); POTASSIUM SERUM 4.4 MMOL/L (3.5-5.1); TOTAL PROTEIN 7.1 G/DL (5.7-8.2)
== END ==
LOC: M LABDRWAD 17:22
PROVIDERS: ATTEND Registered Nurse
DX: R10.12 Left upper quadrant pain (principal)

== ENCOUNTER → 2023-12-13 | Outpatient (REF) | payer MEDICARE ==
[~2023-12-13] MED LIST changes: -RAMI1CAP24 PO; +RAMI5CAP60 PO
[2023-12-13 18:49] LABS: CALCIUM LEVEL 9.8 MG/DL (8.3-10.6); CREATININE FOR GFR 1.99 MG/DL (0.70-1.30); GLOMERULAR FILTRATION RATE 34.7 (>42); MAGNESIUM LEVEL 2.2 MG/DL (1.8-2.4); POTASSIUM SERUM 4.6 MMOL/L (3.5-5.1)
== END ==
LOC: M LABDRWAD 17:13 → M LAB REF 17:13
PROVIDERS: ATTEND Physician Assistant
DX: I50.42 Chronic combined systolic (congestive) and diastolic (congestive) heart failure (principal)

== ENCOUNTER → 2024-02-06 | Outpatient (REF) | payer MEDICARE ==
[2024-02-06 14:08] LABS: BASO # 0.1 10^3/uL (0.0-0.2); BASO % 0.9 % (0.0-1.0); EOS # 0.3 10^3/uL (0.0-0.5); EOS % 4.8 % (0.0-3.0); HEMOGLOBIN 13.9 g/dl (13.5-17.5); LYMPH # 1.5 10^3/uL (1.5-5.0); MEAN CORPUSCULAR HEMOGLOBIN 33.7 pg (27.0-33.0); MEAN CORPUSCULAR HGB CONC 32.3 g/dl (32.0-36.5); MEAN CORPUSCULAR VOLUME 104.4 fl (80.0-96.0); MONO # 0.6 10^3/uL (0.0-0.8); MONO % 8.6 % (2.0-8.0); NEUTROPHILS # 3.9 10^3/uL (1.5-8.5); NEUTROPHILS % 61.4 % (36.0-66.0); PLATELET COUNT, AUTOMATED 228 10^3/uL (150-450); RED BLOOD COUNT 4.12 10^6/uL (4.30-6.10); WHITE BLOOD COUNT 6.4 10^3/uL (4.0-10.0)
[2024-02-06 14:13] LABS: ALBUMIN 3.8 G/DL (3.2-5.2); BILIRUBIN,TOTAL 1.1 MG/DL (0.3-1.2); CALCIUM LEVEL 9.8 MG/DL (8.3-10.6); CHOLESTEROL RISK RATIO 4.31 (<5); CREATININE FOR GFR 1.84 MG/DL (0.70-1.30); HDL CHOLESTEROL 40.3 MG/DL (>40); LDL CHOLESTEROL 68.3 MG/DL (<100); NON-HDL-C 133.7 MG/DL; POTASSIUM SERUM 4.5 MMOL/L (3.5-5.1); TOTAL PROTEIN 6.8 G/DL (5.7-8.2)
[2024-02-06 14:28] LABS: HEMOGLOBIN A1c 6.3 % (4.0-6.0)
== END ==
LOC: M LABDRWAD 13:23
PROVIDERS: ATTEND Registered Nurse
DX: E11.69 Type 2 diabetes mellitus with other specified complication (principal); E78.2 Mixed hyperlipidemia; I10 Essential (primary) hypertension

== ENCOUNTER → 2024-03-18 | Outpatient (REF) | payer MEDICARE ==
[2024-03-18 14:28] LABS: CALCIUM LEVEL 9.6 MG/DL (8.3-10.6); CREATININE FOR GFR 1.87 MG/DL (0.70-1.30); GLOMERULAR FILTRATION RATE 37.3 (>42); MAGNESIUM LEVEL 2.3 MG/DL (1.8-2.4); POTASSIUM SERUM 4.7 MMOL/L (3.5-5.1)
== END ==
LOC: M LABDRWAD 13:08
PROVIDERS: ATTEND Physician Assistant
DX: I50.42 Chronic combined systolic (congestive) and diastolic (congestive) heart failure (principal)

== ENCOUNTER → 2024-03-25 | Outpatient (CLI) | payer MEDICARE | LOC: M PLAIMG 12:23 | PROVIDERS: ATTEND Physician Assistant | DX: I50.42 Chronic combined systolic (congestive) and diastolic (congestive) heart failure (principal); I49.3 Ventricular premature depolarization; I08.8 Other rheumatic multiple valve diseases ==

== ENCOUNTER → 2024-06-24 | Outpatient (REF) | payer MEDICARE ==
[~2024-06-24] MED LIST changes: -CYCL5TAB PO; +CYCL5TAB4 PO
[2024-06-24 18:46] LABS: HEMATOCRIT 43.1 % (42.0-52.0); HEMOGLOBIN 13.8 g/dl (13.5-17.5); MEAN CORPUSCULAR HEMOGLOBIN 33.8 pg (27.0-33.0); MEAN CORPUSCULAR VOLUME 105.6 fl (80.0-96.0); PLATELET COUNT, AUTOMATED 245 10^3/uL (150-450); RED BLOOD COUNT 4.08 10^6/uL (4.30-6.10); WHITE BLOOD COUNT 6.6 10^3/uL (4.0-10.0)
[2024-06-24 19:12] LABS: BILIRUBIN,TOTAL 1.1 MG/DL (0.3-1.2); CALCIUM LEVEL 10.5 MG/DL (8.3-10.6); CREATININE FOR GFR 2.14 MG/DL (0.70-1.30); GLOMERULAR FILTRATION RATE 31.9 (>42); MAGNESIUM LEVEL 2.4 MG/DL (1.8-2.4); POTASSIUM SERUM 4.8 MMOL/L (3.5-5.1); TOTAL PROTEIN 7.3 G/DL (5.7-8.2)
== END ==
LOC: M LABDRWAD 17:34
PROVIDERS: ATTEND Physician Assistant
DX: I50.42 Chronic combined systolic (congestive) and diastolic (congestive) heart failure (principal); I48.21 Permanent atrial fibrillation; I49.3 Ventricular premature depolarization

== ENCOUNTER → 2024-08-19 | Outpatient (REF) | payer MEDICARE ==
[2024-08-19 18:40] LABS: URIC ACID 4.5 MG/DL (3.7-9.2)
[2024-08-19 18:44] LABS: ALBUMIN 4.1 G/DL (3.2-5.2); BILIRUBIN,TOTAL 1.1 MG/DL (0.3-1.2); CALCIUM LEVEL 10.6 MG/DL (8.3-10.6); CREATININE FOR GFR 1.82 MG/DL (0.70-1.30); FREE T4 1.31 NG/DL (0.89-1.76); GLOMERULAR FILTRATION RATE 38.4 (>42); THYROID STIMULATING HORMONE 2.719 uIU/ML (0.55-4.78); TOTAL PROTEIN 7.6 G/DL (5.7-8.2)
== END ==
LOC: M LABDRWAD 17:34
PROVIDERS: ATTEND Registered Nurse
DX: E03.9 Hypothyroidism, unspecified (principal); E11.69 Type 2 diabetes mellitus with other specified complication

== ENCOUNTER → 2024-09-23 | Outpatient (REF) | payer MEDICARE ==
[2024-09-23 19:32] LABS: CREATININE FOR GFR 1.81 MG/DL (0.70-1.30); GLOMERULAR FILTRATION RATE 38.7 (>42); POTASSIUM SERUM 4.4 MMOL/L (3.5-5.1)
== END ==
LOC: M LABDRWAD 17:18
PROVIDERS: ATTEND Physician Assistant
DX: I50.42 Chronic combined systolic (congestive) and diastolic (congestive) heart failure (principal)

== ENCOUNTER → 2024-12-10 | Outpatient (CLI) | payer MEDICARE | LOC: M ADAMS 11:16 | PROVIDERS: ATTEND Physician Assistant | DX: I49.3 Ventricular premature depolarization (principal) ==

== ENCOUNTER → 2024-12-18 | Outpatient (REF) | payer MEDICARE ==
[2024-12-18 14:15] LABS: HEMATOCRIT 40.4 % (42.0-52.0); HEMOGLOBIN 13.1 g/dl (13.5-17.5); MEAN CORPUSCULAR HEMOGLOBIN 33.7 pg (27.0-33.0); MEAN CORPUSCULAR HGB CONC 32.4 g/dl (32.0-36.5); MEAN CORPUSCULAR VOLUME 103.9 fl (80.0-96.0); PLATELET COUNT, AUTOMATED 218 10^3/uL (150-450); RED BLOOD COUNT 3.89 10^6/uL (4.30-6.10); WHITE BLOOD COUNT 6.8 10^3/uL (4.0-10.0)
[2024-12-18 14:50] LABS: ALBUMIN 3.9 G/DL (3.2-5.2); CALCIUM LEVEL 9.6 MG/DL (8.3-10.6); CHOLESTEROL RISK RATIO 3.67 (<5); CREATININE FOR GFR 2.06 MG/DL (0.70-1.30); HDL CHOLESTEROL 42.5 MG/DL (>40); LDL CHOLESTEROL 60.9 MG/DL (<100); MAGNESIUM LEVEL 2.6 MG/DL (1.8-2.4); NON-HDL-C 113.5 MG/DL
== END ==
LOC: M LABDRAWC 13:09 → M LABDRWAD 13:09
PROVIDERS: ATTEND Physician Assistant
DX: I48.21 Permanent atrial fibrillation (principal); I50.42 Chronic combined systolic (congestive) and diastolic (congestive) heart failure; I25.10 Atherosclerotic heart disease of native coronary artery without angina pectoris; I49.3 Ventricular premature depolarization; E78.00 Pure hypercholesterolemia, unspecified

== ENCOUNTER → 2025-03-06 | Outpatient (REF) | payer MEDICARE ==
[~2025-03-06] MED LIST changes: -AMIO200T49 PO; +AMIO200T54 PO; +LIDO1ADH93 TOP; -LIDO5DIS41 TOP
[2025-03-06 13:50] LABS: BASO # 0.1 10^3/uL (0.0-0.2); BASO % 0.7 % (0.0-1.0); EOS # 0.3 10^3/uL (0.0-0.5); EOS % 4.1 % (0.0-3.0); LYMPH # 1.3 10^3/uL (1.5-5.0); LYMPH % 17.7 % (24.0-44.0); MONO # 0.6 10^3/uL (0.0-0.8); MONO % 7.9 % (2.0-8.0); NEUTROPHILS # 5.2 10^3/uL (1.5-8.5); NEUTROPHILS % 69.2 % (36.0-66.0); PLATELET COUNT, AUTOMATED 227 10^3/uL (150-450)
[2025-03-06 13:56] LABS: ALT/SGPT 30.0 U/L (7.0-40); AST/SGOT 23.0 U/L (<34); CALCIUM LEVEL 9.6 MG/DL (8.3-10.6); CARBON DIOXIDE LEVEL 30.0 MMOL/L (20-31); CHLORIDE LEVEL 100.0 MMOL/L (98-107); CHOLESTEROL LEVEL 180.0 MG/DL (<200); CHOLESTEROL RISK RATIO 4.07 (<5); CREATININE FOR GFR 2.1 MG/DL (0.70-1.30); GLOMERULAR FILTRATION RATE 31.2 (>35); LDL CHOLESTEROL 84.0 MG/DL (<100); NON-HDL-C 135.8 MG/DL; POTASSIUM SERUM 4.5 MMOL/L (3.5-5.1); SODIUM LEVEL 139.0 MMOL/L (136-145); TRIGLYCERIDES LEVEL 259.0 MG/DL (<150)
[2025-03-06 14:13] LABS: ESTIMATED AVERAGE GLUCOSE 126.0 MG/DL (60-110)
[2025-03-06 14:21] LABS: CREATININE, URINE 90.4 MG/DL; MALB URINE SIEMENS 5.0 MG/L; MAU/CREAT RATIO 5.5 MCG/MG (0.0-30.0)
== END ==
LOC: M LABDRWAD 12:41
PROVIDERS: ATTEND Registered Nurse
DX: E11.69 Type 2 diabetes mellitus with other specified complication (principal); E78.2 Mixed hyperlipidemia